=== PATIENT | female | born 1995 | race Caucasian/White ===

== ENCOUNTER 2023-11-01 11:07 | Emergency (ER) | payer OTHER, SELFPAY ==
--- OUTSIDE RECORDS SUMMARY | 2023-11-01 11:14 | XMS REPORT | Continuity of Care Document ---
:1995 Author Organization [facility] t Address [address] [place] [address] [address] [place] [address] Care Team Providers Name Role Phone G_Papjaime Attending Clinician Unavailable SHERRON Attending Clinician Unavailable TK LAUREN Attending Clinician Unavailable GÓMEZ HALE Attending Clinician Unavailable KAREL BROOKE Attending Clinician Unavailable LÁZARO SANTANA Attending Clinician Unavailable JUN VEGA Attending Clinician Unavailable KELLY MAYFIELD Attending Clinician Unavailable CLAUDE ZAMUDIO Attending Clinician Unavailable ALISSA MACK Attending Clinician Unavailable Ghislaine_Pappabhavna Admitting Clinician Unavailable SHERRON Admitting Clinician Unavailable TK LAUREN Admitting Clinician Unavailable KAREL BROOKE Admitting Clinician Unavailable Payers Payer Name Policy Type Policy Number Effective Date Expiration Date [facility] [id number] [facility] (MEDICAID REPLACEMENT - HMO) [facility] [id number] [place] [id number] 2017 00:00:00 [facility] [id number] 2016 [facility] 00:00:00 ([place] [id number] [facility] [place]) [place] [facility] - [id number] [facility] [place] [id number] [place] [id number] 2013 (PPO) 00:00:00 Problems Condition Condition Condition Status Onset Resolution Last Treating Co mments Source Name Details Category Date Date Treatment Clinician Date Primary Primary Problem Active [place] dysmenorrh Dysmenorrh -18 da ea ea 00:00: Medical 00 Group Blood Blood Problem Active [place] group O Group O da Rh(D) Rh(D) Medical negative Negative Group Allergies, Adverse Reactions, Alerts Allergy Allergy Status Severity Reaction(s) Onset Inactive Treating Comm ents Source Name Type Date Date Clinician Phenerga Allergy Active Moderate Respiratory [place] n to to severe distress da substanc Medical e Group Social History Smoking Status Start Date Stop Date Source Former Smoker [facility] Medications Ordered Filled Start Stop Current Ordering Indication Dosage Frequency Signature Comments Components Source Medication Medication Date Date Medication? Clinician (SIG) Name Name clindamycin clindamycin No clindamyci [facility] HCl 300 mg HCl 300 mg n HCl 300 da capsule capsule mg capsule Med ical TAKE 1 TAKE 1 TAKE 1 Group CAPSULE BY CAPSULE BY CAPSULE BY MOUTH THREE MOUTH THREE MOUTH TIMES DAILY TIMES DAILY THREE FOR 7 DAYS FOR 7 DAYS TIMES DAILY FOR 7 DAYS doxycycline doxycycline No doxycyclin [place] monohydrate monohydrate e d a 100 mg 100 mg monohydrat Medic al capsule capsule e 100 mg Group TAKE 1 TAKE 1 capsule CAPSULE BY CAPSULE BY TAKE 1 MOUTH TWICE MOUTH TWICE CAPSULE BY DAILY FOR 7 DAILY FOR 7 MOUTH DAYS DAYS TWICE DAILY FOR 7 DAYS Estarylla Estarylla No Estarylla [facility] 0.25 mg-35 0.25 mg-35 0.25 mg-35 da mcg tablet mcg tablet mcg tablet Medical TAKE 1 TAKE 1 TAKE 1 Group TABLET BY TABLET BY TABLET BY MOUTH EVERY MOUTH EVERY MOUTH DAY DAY EVERY DAY metronidazo metronidazo No metronidaz [place] le 500 mg le 500 mg ole 500 mg da tablet TAKE tablet TAKE tablet Medical 2 TABLETS 2 TABLETS TAKE 2 Christopher up BY MOUTH BY MOUTH TABLETS BY EVERY 2 EVERY 2 MOUTH WEEKS WEEKS EVERY 2 WEEKS Flagyl 500 Flagyl 500 No 2 Q2W Flagyl 500 [facility] mg tablet mg tablet mg tablet da Take 2 Take 2 Take 2 Medical tablets tablets tablets Group every 2 every 2 every 2 weeks by weeks by weeks by oral route. oral route. oral route. Sprintec Sprintec No 1 Q1D Sprintec [facility] (28) 0.25 (28) 0.25 (28) 0.25 da mg-35 mcg mg-35 mcg mg-35 mcg Medical tablet Take tablet Take tablet Group 1 tablet 1 tablet Take 1 every day every day tablet by oral by oral every day route. route. by oral route. Vital Signs Vital Name Observation Time Observation Value Comments Source BP Diastolic 2022-09-05 00:00:00 67 mm[Hg] [facility] Height 2022-09-05 00:00:00 65 [in_i] [facility] BMI (Body Mass 2022-09-05 00:00:00 18.6 kg/m2 [facility] Medical Index) Group BP Systolic 2022-09-05 00:00:00 113 mm[Hg] [facility] Body Weight 2022-09-05 00:00:00 111.8 [lb_av] [facility] BP Diastolic 2022-08-19 00:00:00 72 mm[Hg] [facility] Height 2022-08-19 00:00:00 65 [in_i] [facility] BMI (Body Mass 2022-08-19 00:00:00 19 kg/m2 [facility] Medical Index) Group BP Systolic 2022-08-19 00:00:00 124 mm[Hg] [facility] Body Weight 2022-08-19 00:00:00 114.1 [lb_av] [facility] BP Diastolic 2022-04-11 00:00:00 76 mm[Hg] [facility] Height 2022-04-11 00:00:00 65 [in_i] [facility] BMI (Body Mass 2022-04-11 00:00:00 18.5 kg/m2 [facility] Medical Index) Group BP Systolic 2022-04-11 00:00:00 119 mm[Hg] [facility] Body Weight 2022-04-11 00:00:00 111.2 [lb_av] [facility] BP Diastolic 2022-03-11 00:00:00 76 mm[Hg] [facility] Height 2022-03-11 00:00:00 65 [in_i] [facility] BMI (Body Mass 2022-03-11 00:00:00 18.4 kg/m2 [facility] Medical Index) Group BP Systolic 2022-03-11 00:00:00 125 mm[Hg] [facility] Body Weight 2022-03-11 00:00:00 110.5 [lb_av] [facility] BP Diastolic 2021-06-11 00:00:00 75 mm[Hg] [facility] Height 2021-06-11 00:00:00 65 [in_i] [facility] BMI (Body Mass 2021-06-11 00:00:00 18 kg/m2 [facility] Medical Index) Group BP Systolic 2021-06-11 00:00:00 120 mm[Hg] [facility] Body Weight 2021-06-11 00:00:00 107.9 [lb_av] [facility] BP Diastolic 2019-08-19 00:00:00 62 mm[Hg] [facility] Height 2019-08-19 00:00:00 65 [in_i] [facility] BMI (Body Mass 2019-08-19 00:00:00 20.7 kg/m2 [facility] Medical Index) Group BP Systolic 2019-08-19 00:00:00 133 mm[Hg] [facility] Body Weight 2019-08-19 00:00:00 124.4 [lb_av] [facility] Height 2019-08-09 00:00:00 65 [in_i] [facility] BMI (Body Mass 2019-08-09 00:00:00 20.7 kg/m2 [facility] Medical Index) Group Body Weight 2019-08-09 00:00:00 124.4 [lb_av] [facility] BP Diastolic 2019-07-26 00:00:00 77 mm[Hg] [facility] Height 2019-07-26 00:00:00 65 [in_i] [facility] BMI (Body Mass 2019-07-26 00:00:00 20.5 kg/m2 [facility] Medical Index) Group BP Systolic 2019-07-26 00:00:00 130 mm[Hg] [facility] Body Weight 2019-07-26 00:00:00 123 [lb_av] [facility] BP Diastolic 2019-07-06 00:00:00 75 mm[Hg] [facility] Height 2019-07-06 00:00:00 65 [in_i] [facility] BMI (Body Mass 2019-07-06 00:00:00 20.8 kg/m2 [facility] BP Systolic 2019-07-06 00:00:00 131 mm[Hg] [facility] Body Weight 2019-07-06 00:00:00 125.1 [lb_av] [facility] BP Diastolic 2019-06-04 00:00:00 57 mm[Hg] [facility] Height 2019-06-04 00:00:00 65 [in_i] [facility] BMI (Body Mass 2019-06-04 00:00:00 22.2 kg/m2 [facility] Medical Index) Group BP Systolic 2019-06-04 00:00:00 117 mm[Hg] [facility] Body Weight 2019-06-04 00:00:00 133.6 [lb_av] [facility] BP Diastolic 2019-05-20 00:00:00 75 mm[Hg] [facility] Height 2019-05-20 00:00:00 65 [in_i] [facility] BMI (Body Mass 2019-05-20 00:00:00 21.6 kg/m2 [facility] BP Systolic 2019-05-20 00:00:00 113 mm[Hg] [facility] Body Weight 2019-05-20 00:00:00 129.9 [lb_av] [facility] BP Diastolic 2019-05-06 00:00:00 63 mm[Hg] [facility] Height 2019-05-06 00:00:00 65 [in_i] [facility] BMI (Body Mass 2019-05-06 00:00:00 21.7 kg/m2 [facility] BP Systolic 2019-05-06 00:00:00 129 mm[Hg] [facility] Body Weight 2019-05-06 00:00:00 130.5 [lb_av] [facility] BP Diastolic 2019-04-28 00:00:00 57 mm[Hg] [facility] Height 2019-04-28 00:00:00 65 [in_i] [facility] BMI (Body Mass 2019-04-28 00:00:00 21.2 kg/m2 [facility] Index) Group BP Systolic 2019-04-28 00:00:00 114 mm[Hg] [facility] Body Weight 2019-04-28 00:00:00 127.6 [lb_av] [facility] Procedures Procedure Date / Time Performed Performing Clinician [facility] Bilateral Tubal 2019-07-28 00:00:00 [facility] Ligation of Bilateral 2019-07-28 00:00:00 [facility] Fallopian Tubes Group US, obstetric, limited 2019-05-20 00:00:00 [facility] ULTRASOUND REPEAT 2019-04-28 00:00:00 [facility] Colonoscopy [facility] Plan of Care Planned Activity Planned Date Details Comments Source Diagnostic Test 2022-09-05 urinalysis, [facility] 00:00:00 dipstick [code = Group urinalysis, dipstick] Diagnostic Test 2022-09-05 [place], vaginal [facility] Pending 00:00:00 [code = wet [place], Group vaginal] Encounters Start End Encounter Admission Attending Care Care Encounter Source Date/Time Date/Time Type Type Clinicians Facility Department ID 2022-10-16 2022-10-16 Outpatient G_Pappas [facility] 2021 [facility] 00:00:00 00:00:00 [facility] 2022-10-14 2022-10-14 Outpatient G_Pappas [facility] 2021 [place] 00:00:00 00:00:00 [facility] 2022-10-10 2022-10-10 Outpatient G_Pappas [facility] 2021 [place] 00:00:00 00:00:00 [facility] 2022-09-25 2022-09-25 Outpatient G_Pappas [facility] 2021 [place] 00:00:00 00:00:00 1026 [facility] 2022-09-24 2022-09-24 Outpatient G_Pappas [facility] 2021 [place] 00:00:00 00:00:00 1025 [facility] 2022-09-05 2022-09-05 Outpatient G_Pappas [facility] MMG 2021 [place] 00:00:00 00:00:00 [facility]6 [facility] 2022-09-05 2022-09-05 Tk SANTOG [place] - [id number] M [facility] 00:00:00 00:00:00 Discovery kady Lauren MD: [address] [place] [phone] , Ph. [phone] 2022-08-19 2022-08-19 Outpatient G_Pappas MMG MM 2021 [place] 00:00:00 00:00:00 0919 [facility] 2022-08-19 2022-08-19 Tk SANTO [place] - [id number] M [facility] 00:00:00 00:00:00 Discovery kady Lauren MD: [address] [place] [phone] , Ph. [phone] 2022-08-13 2022-08-13 Outpatient G_Pappas MMG MM 2021 [place] 00:00:00 00:00:00 0913 [facility] 2022-04-11 2022-04-11 Outpatient G_Pappas [facility] MMG 2021 [place] 11:12:00 11:12:00 0512 [facility] 2022-04-11 2022-04-11 Outpatient G_Pappas MM[facility] MMG 2021 [place] 11:12:00 11:12:00 0516 [facility] 2022-04-11 2022-04-11 Tk SANTO [place] - [id number] M [facility] 00:00:00 00:00:00 Discovery kady Lauren MD: [address] [place] [phone] , Ph. [phone] 2022-03-25 2022-03-25 Outpatient LISTER_MAXINE GREENE [facility] [id number] -[id number] [place] 03:06:00 03:06:00 SSA 0425 [facility] Program 2022-03-11 2022-03-11 Outpatient EL LEONIDAS, [facility] [id number] [place] 11:12:00 11:12:00 TK -[id number] [facility] 2022-03-11 2022-03-11 Outpatient G_Pappas MMG MM 2021 [place] 11:10:00 11:10:00 0411 [facility] 2022-03-11 2022-03-11 Outpatient G_Pappas MMG MMG 2021 [place] 11:10:00 11:10:00 0412 [facility] 2022-03-11 2022-03-11 Outpatient G_Pappas MMG MM 2021 [place] 11:10:00 11:10:00 0426 [facility] 2022-03-11 2022-03-11 Outpatient G_Pappas MMG MMG 2021 [place] 11:10:00 11:10:00 0509 [facility] 2022-03-11 2022-03-11 Tk [facility] [place] - [id number] [facility] 00:00:00 00:00:00 Discovery kady Lauren MD: [address] [place] [phone] , Ph. [phone] 2022-03-08 2022-03-08 Outpatient G_Pappas MMG MM 2021 [place] 10:08:00 10:08:00 0408 [facility] 2021-07-23 2021-07-23 Emergency ER GÓMEZ HALE [facility] [id number] [place] 08:36:00 10:03:00 -[id number] [facility] 2021-06-12 2021-06-12 Outpatient G_Pappas MMG MMG 2020 [place] 01:36:00 01:36:00 0713 [facility] 2021-06-11 2021-06-11 Outpatient G_Pappas MMG MM 2020 [place] 10:26:00 10:26:00 0712 da [facility] 2021-06-11 2021-06-11 Tk [place] - [id number] M [facility] 00:00:00 00:00:00 Discovery kady Lauren MD: [address] [place] [phone] , Ph. [phone] 2021-06-05 2021-06-05 [facility] [id number] [place] 11:31:00 11:31:00 0706 [facility] 2021-06-05 2021-06-05 Outpatient G_Pappas MM MM [id number] [place] 11:31:00 11:31:00 0709 [facility] 2020-10-18 2020-10-18 Outpatient G_Pappas MM MM 2019 [place] 02:42:00 02:42:00 1118 [facility] 2019-08-19 2019-08-19 Tk [place] - [id number] M [facility] 00:00:00 00:00:00 Discovery kady Lauren MD: [address] [place] [phone] , Ph. [phone] 2019-08-09 2019-08-09 Tk [place] - [id number] M [facility] 00:00:00 00:00:00 Discovery kady Lauren MD: [address] [place] [phone] , Ph. [phone] 2019-07-28 2019-07-28 Outpatient [facility] [id number] [place] 07:40:00 07:40:00 TK [id number] kady [facility] 2019-07-26 2019-07-26 Tk [place] - [id number] M [facility] 00:00:00 00:00:00 Discovery kady Lauren MD: [address] [place] [phone] , Ph. [phone] 2019-07-06 2019-07-06 Tk [place] - [id number] M [facility] 00:00:00 00:00:00 Discovery kady Lauren MD: [address] [place] [phone] , Ph. [phone] 2019-06-15 2019-06-16 Inpatient ER LEONIDAS, [facility] [id number] [place] 10:35:00 09:00:00 TK [id number] kady [facility] 2019-06-04 2019-06-04 Karel [place] - [id number] M [facility] 00:00:00 00:00:00 [facility] MD: [address] [place] [phone] , Ph. [phone] 2019-05-20 2019-05-20 Tk [place] - [id number] M [facility] 00:00:00 00:00:00 Discovery kady Lauren MD: [address] [place] [phone] , Ph. [phone] 2019-05-11 2019-05-11 Emergency ER EDWARDO, [facility] [id number] [place] 15:25:00 17:48:00 KAREL [id number] [facility] 2019-05-06 2019-05-06 Outpatient EL LEONIDAS, [facility] [id number] [place] 09:51:00 09:51:00 TK [id number] kady [facility] 2019-05-06 2019-05-06 Tk [place] - [id number] M [facility] 00:00:00 00:00:00 Discovery kady Lauren MD: [address] [place] [phone] , Ph. [phone] 2019-04-28 2019-04-28 Tk [place] - [id number] M [facility] 00:00:00 00:00:00 Discovery kady Lauren MD: [address] [facility] [place], [place] - [address], [place] [address] , Ph. [phone] 2018-11-18 2018-11-18 Emergency ER GÓMEZ HALE [facility] [id number] [place] 11:33:00 14:10:00 -[id number] [facility] 2018-02-23 2018-02-23 Emergency ER UGORJI, [facility] [id number] [place] 09:05:00 10:55:00 CLEMENT -[id number] [facility] 2015-02-02 2015-02-02 Emergency ER VEGA, [facility] [id number] [place] 14:43:00 18:00:00 WAS -[id number] [facility] 2014-10-12 2014-10-13 Emergency ER VEGA, [facility] [id number] [place] 23:26:00 00:55:00 WASIM -[id number] [facility] 2014-06-23 2014-06-24 Emergency ER KELLY MAYFIELD [facility] [id number] [place] 23:08:00 01:35:00 -[id number] [facility] 2013-11-15 2013-11-15 Emergency ER ROBB, [facility] [id number] [place] 15:47:00 18:05:00 [facility] -[id number] [facility] 2013-09-20 2013-09-20 Emergency ER UGORJI, [facility] [id number] [place] 10:59:00 13:05:00 CLEMENT -[id number] [facility] 2013-07-08 2013-07-08 Emergency ER UGORJI, [facility] [id number] [place] 13:46:00 15:05:00 CLEMENT -[id number] [facility] 2012-09-15 2012-09-17 Inpatient EL EDWARDO, [facility] [id number] [place] 13:56:00 11:00:00 KAREL -[id number] [facility] 2012-08-26 2012-08-26 Emergency ER EDWARDO, [facility] [id number] [place] 17:11:00 20:30:00 [facility] -[id number] [facility] 2012-08-03 2012-08-03 Emergency EL EDWARDO, [facility] [id number] [place] 16:03:00 17:20:00 KAREL -[id number] [facility] 2012 2012 Emergency ER MACK, [facility] [id number] [place] 18:54:00 22:25:00 ALISSA -[id number] [facility] 2012-03-22 2012-03-22 Emergency ER VEGA, [facility] [id number] [place] 15:34:00 20:05:00 WAS -[id number] [facility] 2011-12-04 2011-12-04 Emergency ER [facility], [facility] [id number] [place] 18:18:00 20:25:00 [facility] -[id number] Former[facility] 2011-05-02 2011-05-03 Emergency ER [facility], [facility] [id number] [place] 23:14:00 00:41:00 WAS -[id number] [facility] 2010-11-20 2010-11-20 Emergency ER STEPHAN, [facility] [id number] [place] 13:21:00 17:55:00 [facility] -[id number] [facility] 2010-04-24 2010-04-24 Emergency ER [facility] [id number] [place] 22:32:00 23:50:00 WAS -[id number] [facility] Results Test Description Test Time Test Comments Results Result Comments Source Microscopic observation [Identifier] in Vaginal fluid by Wet 2022-09-05 17:51:43 preparation Test Item Value Reference Range Interpretation Comme nts Clue Cells (test code = Clue Cells) negative WBCs (test code = WBCs) negative Trichomonads (test code = Trichomonads) negative Epithelial cells (test code = Epithelial cells) normal RBCs (test code = RBCs) positive [facility] Group[facility] macro (dipstick) panel - [id number] 15:39:54 Test Item Value Reference Range Interpretation Comments Leukocytes (test code = Negative Leukocytes) Nitrite (test code = negative Nitrite) Urobilinogen (test code = 1 Urobilinogen) Protein (test code = Negative Protein) pH (test code = pH) 5.5 Blood (test code = Blood) Non-Hemolyzed: Trace Specific Webb (test 1.030 code = Specific Webb) Ketone (test code = Negative Ketone) Bilirubin (test code = Negative Bilirubin) Glucose (test code = Negative Glucose) Appearance (test code = Clear Appearance) Color (test code = Color) Yellow [facility] GroupCT + NG + TV, DNA, [id number] 00:00:00 Test Item Value Reference Range Interpretation Comments larisa - swab (test code = larisa normal - swab) gardnerella (test code = abnormal A gardnerella) CT/NG (test code = CT/NG) normal trichomonas vaginalis addon - swab normal (test code = trichomonas vaginalis addon - swab) [facility] GroupMicroscopic observation [Identifier] in Vaginal fluid by Wet [id number] 11:32:01 Test Item Value Reference Range Interpretation Comments Clue Cells (test code = Clue Cells) positive WBCs (test code = WBCs) negative Trichomonads (test code = negative Trichomonads) Epithelial cells (test code = abnormal Epithelial cells) RBCs (test code = RBCs) negative [facility] GroupMicroscopic observation [Identifier] in Vaginal fluid by Wet [id number] 11:32:01 Test Item Value Reference Range Interpretation Comments Clue Cells (test code = Clue Cells) positive WBCs (test code = WBCs) negative Trichomonads (test code = negative Trichomonads) Epithelial cells (test code = abnormal Epithelial cells) RBCs (test code = RBCs) negative [facility] - [id number] 11:06:08 Test Item Value Reference Range Interpretation Comments Leukocytes (test code = Leukocytes) Negative Nitrite (test code = Nitrite) negative Urobilinogen (test code = 1 Urobilinogen) Protein (test code = Protein) Negative pH (test code = pH) 7.5 Blood (test code = Blood) Negative Specific Webb (test code = 1.015 Specific Webb) Ketone (test code = Ketone) Negative Bilirubin (test code = Bilirubin) Negative Glucose (test code = Glucose) Negative Appearance (test code = Appearance) Clear Color (test code = Color) Yellow [facility] - [id number] 11:06:08 Test Item Value Reference Range Interpretation Comments Leukocytes (test code = Leukocytes) Negative Nitrite (test code = Nitrite) negative Urobilinogen (test code = 1 Urobilinogen) Protein (test code = Protein) Negative pH (test code = pH) 7.5 Blood (test code = Blood) Negative Specific Webb (test code = 1.015 Specific Webb) Ketone (test code = Ketone) Negative Bilirubin (test code = Bilirubin) Negative Glucose (test code = Glucose) Negative Appearance (test code = Appearance) Clear Color (test code = Color) Yellow [facility] GroupMicroscopic observation [Identifier] in Vaginal fluid by Wet [id number] 10:50:00 Test Item Value Reference Range Interpretation Comments Clue Cells (test code = Clue Cells) negative WBCs (test code = WBCs) negative Trichomonads (test code = negative Trichomonads) Epithelial cells (test code = normal Epithelial cells) RBCs (test code = RBCs) negative [facility] panel - [id number] 10:31:06 Test Item Value Reference Range Interpretation Comments Leukocytes (test code = Leukocytes) Negative Nitrite (test code = Nitrite) negative Urobilinogen (test code = 4 Urobilinogen) Protein (test code = Protein) Negative pH (test code = pH) 7.0 Blood (test code = Blood) Negative Specific Webb (test code = 1.015 Specific Webb) Ketone (test code = Ketone) Negative Bilirubin (test code = Bilirubin) Negative Glucose (test code = Glucose) Negative Appearance (test code = Appearance) Clear Color (test code = Color) Yellow [facility] GroupMicroscopic observation [Identifier] in Vaginal fluid by Wet [id number] 11:41:06 Test Item Value Reference Range Interpretation Comments Clue Cells (test code = Clue Cells) positive WBCs (test code = WBCs) positive Trichomonads (test code = negative Trichomonads) Epithelial cells (test code = abnormal Epithelial cells) RBCs (test code = RBCs) negative [facility] panel - [id number] 10:25:52 Test Item Value Reference Range Interpretation Comments Leukocytes (test code = Leukocytes) Negative Nitrite (test code = Nitrite) negative Urobilinogen (test code = .2 Urobilinogen) Protein (test code = Protein) Negative pH (test code = pH) 5.5 Blood (test code = Blood) Negative Specific Webb (test code = 1.005 Specific Webb) Ketone (test code = Ketone) Negative Bilirubin (test code = Bilirubin) Negative Glucose (test code = Glucose) Negative Appearance (test code = Appearance) Clear Color (test code = Color) Yellow [facility] panel - [id number] 09:49:00 Test Item Value Reference Range Interpretation Comments Leukocytes (test code = Leukocytes) Negative Nitrite (test code = Nitrite) negative Urobilinogen (test code = .2 Urobilinogen) Protein (test code = Protein) Negative pH (test code = pH) 6.0 Blood (test code = Blood) Negative Specific Webb (test code = 1.030 Specific Webb) Ketone (test code = Ketone) Negative Bilirubin (test code = Bilirubin) Small Glucose (test code = Glucose) Negative Appearance (test code = Appearance) Clear Color (test code = Color) Yellow [facility]dipstick[facility] panel - [id number] 10:50:50 Test Item Value Reference Range Interpretation Comments Leukocytes (test code = Leukocytes) Negative Nitrite (test code = Nitrite) negative Urobilinogen (test code = .2 Urobilinogen) Protein (test code = Protein) Negative pH (test code = pH) 5.5 Blood (test code = Blood) Negative Specific Webb (test code = 1.020 Specific Webb) Ketone (test code = Ketone) Negative Bilirubin (test code = Bilirubin) Negative Glucose (test code = Glucose) Negative Appearance (test code = Appearance) Clear Color (test code = Color) Yellow [facility] panel - [id number] 10:50:50 Test Item Value Reference Range Interpretation Comments Leukocytes (test code = Leukocytes) Negative Nitrite (test code = Nitrite) negative Urobilinogen (test code = .2 Urobilinogen) Protein (test code = Protein) Negative pH (test code = pH) 5.5 Blood (test code = Blood) Negative Specific Webb (test code = 1.020 Specific Webb) Ketone (test code = Ketone) Negative Bilirubin (test code = Bilirubin) Negative Glucose (test code = Glucose) Negative Appearance (test code = Appearance) Clear Color (test code = Color) Yellow [facility] W Auto Differential panel - [id number] 09:51:00 Test Item Value Reference Range Interpretation Comments white blood count (test code = 6.8 K/uL 4.0-11.5 white blood count) red blood count (test code = red 4.66 M/uL 3.80-5.20 blood count) hemoglobin (test code = 12.6 g/dL 10.5-15.7 hemoglobin) hematocrit (test code = 39.4 % 34.0-50.0 hematocrit) Erythrocyte mean corpuscular 84.5 fL 86-100 L volume [Entitic volume] (test code = 70061-9) mean corpuscular hemoglobin (test 27.0 pg 26.2-33.4 code = mean corpuscular hemoglobin) mean corpuscular HGB conc (test 32.0 g/dL 30-34 code = mean corpuscular HGB conc) red cell distribution width (test 12.8 % 12.0-15.5 code = red cell distribution width) platelet count (test code = 235 K/uL 165-450 platelet count) mean platelet volume (test code = 10.2 fL 9.4-12.6 mean platelet volume) Neutrophils.segmented/100 60.0 % 44.4-80.1 leukocytes in Blood (test code = 79271-5) Ig% (test code = Ig%) 0.3 % 0.0-0.4 lymphocyte% (test code = 32.8 % 10.0-50.0 lymphocyte%) mono % (test code = mono %) 5.3 % 3.6-12.0 eos % (test code = eos %) 1.3 % 0.0-5.4 Basophils/100 leukocytes in 0.3 % 0.1-1.2 Unspecified specimen (test code = 65398-7) absolute neutrophil count (test 4.05 K/uL 1.56-6.13 code = absolute neutrophil count) Ig# (test code = Ig#) 0.0 K/uL 0.0-0.03 Lymphocytes [#/volume] in 2.2 K/uL 1.18-3.74 Unspecified specimen by Automated count (test code = 99573-5) mono # (test code = mono #) 0.36 K/uL 0.24-0.86 eos # (test code = eos #) 0.09 K/uL 0.04-0.36 basophil # (test code = basophil 0.02 K/uL 0.01-0.08 #) NRBC% (test code = NRBC%) 0 /100 WBC 0-0.2 NRBC# (test code = NRBC#) 0 K/uL [facility] W Auto Differential panel - [id number] 09:51:00 Test Item Value Reference Range Interpretation Comments white blood count (test code = 6.8 K/uL 4.0-11.5 white blood count) red blood count (test code = red 4.66 M/uL 3.80-5.20 blood count) hemoglobin (test code = 12.6 g/dL 10.5-15.7 hemoglobin) hematocrit (test code = 39.4 % 34.0-50.0 hematocrit) Erythrocyte mean corpuscular 84.5 fL 86-100 L volume [Entitic volume] (test code = 50234-8) mean corpuscular hemoglobin (test 27.0 pg 26.2-33.4 code = mean corpuscular hemoglobin) mean corpuscular HGB conc (test 32.0 g/dL 30-34 code = mean corpuscular HGB conc) red cell distribution width (test 12.8 % 12.0-15.5 code = red cell distribution width) platelet count (test code = 235 K/uL 165-450 platelet count) mean platelet volume (test code = 10.2 fL 9.4-12.6 mean platelet volume) Neutrophils.segmented/100 60.0 % 44.4-80.1 leukocytes in Blood (test code = 26135-9) Ig% (test code = Ig%) 0.3 % 0.0-0.4 lymphocyte% (test code = 32.8 % 10.0-50.0 lymphocyte%) mono % (test code = mono %) 5.3 % 3.6-12.0 eos % (test code = eos %) 1.3 % 0.0-5.4 Basophils/100 leukocytes in 0.3 % 0.1-1.2 Unspecified specimen (test code = 96535-7) absolute neutrophil count (test 4.05 K/uL 1.56-6.13 code = absolute neutrophil count) Ig# (test code = Ig#) 0.0 K/uL 0.0-0.03 Lymphocytes [#/volume] in 2.2 K/uL 1.18-3.74 Unspecified specimen by Automated count (test code = 76247-8) mono # (test code = mono #) 0.36 K/uL 0.24-0.86 eos # (test code = eos #) 0.09 K/uL 0.04-0.36 basophil # (test code = basophil 0.02 K/uL 0.01-0.08 #) NRBC% (test code = NRBC%) 0 /100 WBC 0-0.2 NRBC# (test code = NRBC#) 0 K/uL [facility]dipstick[facility] panel - [id number] 10:45:13 Test Item Value Reference Range Interpretation Comments Leukocytes (test code = Leukocytes) Negative Nitrite (test code = Nitrite) negative Urobilinogen (test code = .2 Urobilinogen) Protein (test code = Protein) Negative pH (test code = pH) 5.5 Blood (test code = Blood) Moderate Specific Webb (test code = 1.025 Specific Webb) Ketone (test code = Ketone) Negative Bilirubin (test code = Bilirubin) Negative Glucose (test code = Glucose) Negative Appearance (test code = Appearance) Clear Color (test code = Color) Yellow [facility] (dipstick) panel - [id number] 10:45:13 Test Item Value Reference Range Interpretation Comments Leukocytes (test code = Leukocytes) Negative Nitrite (test code = Nitrite) negative Urobilinogen (test code = .2 Urobilinogen) Protein (test code = Protein) Negative pH (test code = pH) 5.5 Blood (test code = Blood) Moderate Specific Webb (test code = 1.025 Specific Webb) Ketone (test code = Ketone) Negative Bilirubin (test code = Bilirubin) Negative Glucose (test code = Glucose) Negative Appearance (test code = Appearance) Clear Color (test code = Color) Yellow [facility] (dipstick) panel - [id number] 10:45:13 Test Item Value Reference Range Interpretation Comments Leukocytes (test code = Leukocytes) Negative Nitrite (test code = Nitrite) negative Urobilinogen (test code = .2 Urobilinogen) Protein (test code = Protein) Negative pH (test code = pH) 5.5 Blood (test code = Blood) Moderate Specific Webb (test code = 1.025 Specific Webb) Ketone (test code = Ketone) Negative Bilirubin (test code = Bilirubin) Negative Glucose (test code = Glucose) Negative Appearance (test code = Appearance) Clear Color (test code = Color) [facility] - [id number] 00:00:00 Test Item Value Reference Range Interpretation Comments white blood count (test code = 12.0 K/uL 4.0-11.5 H white blood count) red blood count (test code = red 3.77 M/uL 3.80-5.20 L blood count) hemoglobin (test code = 9.9 g/dL 10.5-15.7 L hemoglobin) hematocrit (test code = 32.7 % 34.0-50.0 L hematocrit) Erythrocyte mean corpuscular 86.7 fL 86-100 volume [Entitic volume] (test code = 72446-4) Erythrocyte mean corpuscular 26.3 pg 26.2-33.4 hemoglobin [Entitic mass] (test code = 38380-6) mean corpuscular HGB conc (test 30.3 g/dL 30-34 code = mean corpuscular HGB conc) red cell distribution width (test 13.2 % 12.0-15.5 code = red cell distribution width) platelet count (test code = 219 K/uL 165-450 platelet count) mean platelet volume (test code = 10.0 fL 9.4-12.6 mean platelet volume) Neutrophils.segmented/100 72.2 % 44.4-80.1 leukocytes in Blood (test code = 79017-7) Ig% (test code = Ig%) 0.4 % 0.0-0.4 lymphocyte% (test code = 20.8 % 10.0-50.0 lymphocyte%) Monocytes/100 leukocytes in Blood 5.5 % 3.6-12.0 by Automated count (test code = 5905-5) Eosinophils/100 leukocytes in 0.8 % 0.0-5.4 Blood by Automated count (test code = 713-8) Basophils/100 leukocytes in 0.3 % 0.1-1.2 Unspecified specimen (test code = 41510-2) absolute neutrophil count (test 8.64 K/uL 1.56-6.13 H code = absolute neutrophil count) Ig# (test code = Ig#) 0.1 K/uL 0.0-0.03 H Lymphocytes [#/volume] in 2.5 K/uL 1.18-3.74 Unspecified specimen by Automated count (test code = 61688-9) mono # (test code = mono #) 0.66 K/uL 0.24-0.86 eos # (test code = eos #) 0.09 K/uL 0.04-0.36 basophil # (test code = basophil 0.03 K/uL 0.01-0.08 #) NRBC% (test code = NRBC%) 0 /100 WBC 0-0.2 NRBC# (test code = NRBC#) 0 K/uL [facility] Group[facility] complete [facility] - [id number] 00:00:00 Test Item Value Reference Range Interpretation Comments Color of Urine by Auto (test colorless code = 07913-4) Appearance of Urine (test code clear clear = 5767-9) Glucose [Presence] in Urine by negative negative Automated test strip (test code = 43232-9) Bilirubin.total [Mass/volume] negative negative in Urine (test code = 1977-6) Ketones [Mass/volume] in Urine negative negative by Automated test strip (test code = 64114-0) Specific gravity of Urine by 1.007 1.003-1.030 Automated test strip (test code = 14284-6) blood urine (test code = blood negative negative urine) pH of Urine (test code = 6.500 5-9 2756-5) protein urine (UA) (test code = negative negative protein urine (UA)) Urobilinogen [Presence] in normal 0.2-1.0 Urine (test code = 01845-1) Nitrite [Presence] in Urine by negative negative Test strip (test code = 5802-4) Leukocyte esterase [Presence] negative negative in Urine by Automated test strip (test code = 51619-3) Erythrocytes [#/volume] in <1 0-5 Urine by Automated count (test code = 798-9) Leukocytes [#/area] in Urine <1 0-5 sediment by Automated count (test code = 63994-3) Epithelial cells [Presence] in =1-5 0-5 Urine sediment by Light microscopy (test code = 55287-4) Bacteria identified in Urine by none detected none detect Culture (test code = 630-4) Casts [#/area] in Urine none detected none detect sediment by Automated count (test code = 42692-8) urine culture added? (test code no = urine culture added?) [facility] W Auto Differential panel - [id number] 00:00:00 Test Item Value Reference Range Interpretation Comments white blood count (test code = 11.8 K/uL 4.0-11.5 H white blood count) red blood count (test code = red 4.03 M/uL 3.80-5.20 blood count) hemoglobin (test code = 10.6 g/dL 10.5-15.7 hemoglobin) hematocrit (test code = 34.3 % 34.0-50.0 hematocrit) Erythrocyte mean corpuscular 85.1 fL 86-100 L volume [Entitic volume] (test code = 98354-9) Erythrocyte mean corpuscular 26.3 pg 26.2-33.4 hemoglobin [Entitic mass] (test code = 01118-3) mean corpuscular HGB conc (test 30.9 g/dL 30-34 code = mean corpuscular HGB conc) red cell distribution width (test 13.2 % 12.0-15.5 code = red cell distribution width) platelet count (test code = 264 K/uL 165-450 platelet count) mean platelet volume (test code = 10.0 fL 9.4-12.6 mean platelet volume) Neutrophils.segmented/100 78.3 % 44.4-80.1 leukocytes in Blood (test code = 48926-8) Ig% (test code = Ig%) 0.7 % 0.0-0.4 H lymphocyte% (test code = 14.8 % 10.0-50.0 lymphocyte%) Monocytes/100 leukocytes in Blood 5.8 % 3.6-12.0 by Automated count (test code = 5905-5) Eosinophils/100 leukocytes in 0.2 % 0.0-5.4 Blood by Automated count (test code = 713-8) Basophils/100 leukocytes in 0.2 % 0.1-1.2 Unspecified specimen (test code = 08178-5) absolute neutrophil count (test 9.24 K/uL 1.56-6.13 H code = absolute neutrophil count) Ig# (test code = Ig#) 0.1 K/uL 0.0-0.03 H Lymphocytes [#/volume] in 1.8 K/uL 1.18-3.74 Unspecified specimen by Automated count (test code = 31160-9) mono # (test code = mono #) 0.68 K/uL 0.24-0.86 eos # (test code = eos #) 0.02 K/uL 0.04-0.36 L basophil # (test code = basophil 0.02 K/uL 0.01-0.08 #) NRBC% (test code = NRBC%) 0 /100 WBC 0-0.2 NRBC# (test code = NRBC#) 0 K/uL [facility]Rubella virus IgG Ab [Titer] in [id number] 00:00:00 Test Item Value Reference Range Interpretation Comments Rubella virus IgG Ab 44.10 [IU]/mL [Units/volume] in Serum by Immunoassay (test code = 5334-8) [facility]Hepatitis B virus surface Ag [Presence] in Serum 2019-06-15 00:00:00 Test Item Value Reference Range Interpretation Comments .hepatitis B surface antigen (test negative negative code = .hepatitis B surface antigen) [facility]Reagin Ab [Presence] in Serum by [id number] 00:00:00 Test Item Value Reference Range Interpretation Comments Reagin Ab [Presence] in Serum by nonreactive nonreactive RPR (test code = 17315-3) [facility]Ur[facility] (dipstick) panel - [id number] 09:56:57 Test Item Value Reference Range Interpretation Comments Leukocytes (test code = Leukocytes) Trace Nitrite (test code = Nitrite) negative Urobilinogen (test code = 1 Urobilinogen) Protein (test code = Protein) 30 pH (test code = pH) 7.5 Blood (test code = Blood) Negative Specific Webb (test code = 1.020 Specific Webb) Ketone (test code = Ketone) Negative Bilirubin (test code = Bilirubin) Negative Glucose (test code = Glucose) Negative Appearance (test code = Appearance) Clear Color (test code = Color) Yellow [facility]Ur[facility] macro (dipstick) panel - [id number] 09:56:57 Test Item Value Reference Range Interpretation Comments Leukocytes (test code = Leukocytes) Trace Nitrite (test code = Nitrite) negative Urobilinogen (test code = 1 Urobilinogen) Protein (test code = Protein) 30 pH (test code = pH) 7.5 Blood (test code = Blood) Negative Specific Webb (test code = 1.020 Specific Webb) Ketone (test code = Ketone) Negative Bilirubin (test code = Bilirubin) Negative Glucose (test code = Glucose) Negative Appearance (test code = Appearance) Clear Color (test code = Color) Yellow [facility]Ur[facility] complete panel - [id number] 00:00:00 Test Item Value Reference Range Interpretation Comments Color of Urine by Auto (test light yellow code = 23175-4) Appearance of Urine (test code = SL cloudy clear A 5767-9) Glucose [Presence] in Urine by negative negative Automated test strip (test code = 80516-1) Bilirubin.total [Mass/volume] in negative negative Urine (test code = 1978-6) Ketones [Mass/volume] in Urine =1 negative H by Automated test strip (test code = 92725-8) Specific gravity of Urine by 1.011 1.003-1.030 Automated test strip (test code = 23585-5) blood urine (test code = blood negative negative urine) pH of Urine (test code = 2756-5) 7.000 5-9 protein urine (UA) (test code = negative negative protein urine (UA)) Urobilinogen [Presence] in Urine normal 0.2-1.0 (test code = 84079-6) Nitrite [Presence] in Urine by negative negative Test strip (test code = 5802-4) Leukocyte esterase [Presence] in =2 negative H Urine by Automated test strip (test code = 68216-0) Erythrocytes [#/volume] in Urine <1 0-5 by Automated count (test code = 798-9) Leukocytes [#/area] in Urine =20-29 0-5 H sediment by Automated count (test code = 72098-2) Epithelial cells [Presence] in =1-5 0-5 Urine sediment by Light microscopy (test code = 36113-7) Bacteria identified in Urine by moderate (2 none detect H Culture (test code = 630-4) Casts [#/area] in Urine sediment =11-14 none detect H by Automated count (test code = 52177-6) urine culture added? (test code yes = urine culture added?) [facility] HospitalMicroscopic observation [Identifier] in Unspecified specimen by Wet [id number] 00:00:00[facility] Differential [facility] - [id number] 00:00:00 Test Item Value Reference Range Interpretation Comments white blood count (test code = 11.1 K/uL 4.0-11.5 white blood count) red blood count (test code = red 3.35 M/uL 3.80-5.20 L blood count) Hemoglobin [Mass/volume] in Blood 9.2 g/dL 10.5-15.7 L (test code = 718-7) hematocrit (test code = hematocrit) 29.7 % 34.0-50.0 L Erythrocyte mean corpuscular volume 88.6 fL 78-98 [Entitic volume] (test code = 24138-2) Erythrocyte mean corpuscular 27.5 pg 26.2-33.4 hemoglobin [Entitic mass] (test code = 53639-4) mean corpuscular HGB conc (test 31.1 g/dL 31.5-36.2 L code = mean corpuscular HGB conc) red cell distribution width (test 12.5 % 11.5-15.5 code = red cell distribution width) Platelets [#/volume] in Blood (test 209 K/uL 137-338 code = 67967-2) Platelet mean volume [Entitic 7.3 fL 8.4-11.8 L volume] in Blood (test code = 79170-2) Neutrophils.band form/100 72.2 % 44.4-80.1 leukocytes in Blood (test code = 65242-8) Lymphocytes/100 leukocytes in Body 20.8 % 10.0-50.0 fluid (test code = 21427-6) Monocytes/100 leukocytes in Blood 6.2 % 3.6-12.0 by Automated count (test code = 5905-5) Eosinophils/100 leukocytes in Blood 0.3 % 0.0-5.4 by Automated count (test code = 713-8) Basophils/100 leukocytes in 0.4 % 0.0-0.79 Unspecified specimen (test code = 49530-2) [facility]differential panel, [id number] 00:00:00 NeutrophilsBandLymphocyteAtypical LymphMonocyteEosinophilBasophilMetamyelocyteMyelocytePlatelet EstimatePlatelet MorphologyPoikilocytosisAnisocytosisMacrocytosisToxic GranulationHypersegmented PolysSmudge CellsCovington [facility] HospitalChlamydia trachomatis+Neisseria gonorrhoeae DNA [Presence] in Cervix by Probe and target amplification method 2019-05-11 00:00:00ResultsCovington County HospitalBacteria identified in Urine by [id number] 00:00:00Bacteria Ur CultCovington County HospitalReagin Ab [Presence] in Serum by [id number] 00:00:00 Test Item Value Reference Range Interpretation Comments Reagin Ab [Presence] in Serum by nonreactive nonreactive RPR (test code = 59434-8) [facility] HospitalHepatitis B virus surface Ag [Presence] in Serum 2019-05-11 00:00:00 Test Item Value Reference Range Interpretation Comments .hepatitis B surface antigen (test negative negative code = .hepatitis B surface antigen) [facility] HospitalComprehensive [facility] 2000 panel - Serum or Plasma 2019-05-11 00:00:00 Test Item Value Reference Range Interpretation Comments Glucose [Mass/volume] in Serum or 72 mg/dL 74-106 L Plasma (test code = 2345-7) Urea nitrogen [Mass/volume] in 6 mg/dL 6-20 Serum or Plasma (test code = 3094-0) Osmolality of Serum or Plasma 270 280-300 L (test code = 2692-2) creatinine (test code = 0.3 mg/dL 0.50-0.90 L creatinine) glomerular filtration rate (test >60.00 code = glomerular filtration rate) Urea nitrogen/Creatinine [Mass 20.0 12-20 Ratio] in Serum or Plasma (test code = 3097-3) sodium level (test code = sodium 137 mmol/L 135-145 level) potassium level (test code = 2.9 mmol/L 3.5-5.2 L potassium level) chloride level (test code = 102 mmol/L 98-108 chloride level) CO2 (test code = CO2) 18 mmol/L 21-32 L anion gap (test code = anion gap) 19.9 mEq/L 12-20 calcium level (test code = calcium 8.7 mg/dL 8.6-10.0 level) total protein (test code = total 6.3 g/dL 6.6-8.7 L protein) albumin (test code = albumin) 3.6 g/dL 3.5-5.2 globulin (test code = globulin) 2.7 gm/dL A/G ratio (test code = A/G ratio) 1.3 >1.0 bilirubin,total (test code = <0.3 0.0-1.2 bilirubin,total) AST/SGOT (test code = AST/SGOT) 21 U/L 15-32 Alanine aminotransferase 19 U/L 0-33 [Enzymatic activity/volume] in Serum or Plasma (test code = 1742-6) Alkaline phosphatase [Enzymatic 89 U/L 35-105 activity/volume] in Serum or Plasma (test code = 6768-6) [facility] GroupUrinalysis complete panel - [id number] 00:00:00 Test Item Value Reference Range Interpretation Comments Color of Urine by Auto (test light yellow code = 05156-2) Appearance of Urine (test code = SL cloudy clear A 5767-9) Glucose [Presence] in Urine by negative negative Automated test strip (test code = 23207-9) Bilirubin.total [Mass/volume] in negative negative Urine (test code = 1978-6) Ketones [Mass/volume] in Urine =1 negative H by Automated test strip (test code = 27249-9) Specific gravity of Urine by 1.011 1.003-1.030 Automated test strip (test code = 94174-1) blood urine (test code = blood negative negative urine) pH of Urine (test code = 2756-5) 7.000 5-9 protein urine (UA) (test code = negative negative protein urine (UA)) Urobilinogen [Presence] in Urine normal 0.2-1.0 (test code = 87453-7) Nitrite [Presence] in Urine by negative negative Test strip (test code = 5802-4) Leukocyte esterase [Presence] in =2 negative H Urine by Automated test strip (test code = 40274-8) Erythrocytes [#/volume] in Urine <1 0-5 by Automated count (test code = 798-9) Leukocytes [#/area] in Urine =20-29 0-5 H sediment by Automated count (test code = 17499-5) Epithelial cells [Presence] in =1-5 0-5 Urine sediment by Light microscopy (test code = 69476-8) Bacteria identified in Urine by moderate (2 none detect H Culture (test code = 630-4) Casts [#/area] in Urine sediment =11-14 none detect H by Automated count (test code = 38921-8) urine culture added? (test code yes = urine culture added?) [facility] HospitalMicroscopic observation [Identifier] in Unspecified specimen by Wet [id number] 00:00:00[facility] Auto Differential panel - [id number] 00:00:00 Test Item Value Reference Range Interpretation Comments white blood count (test code = 11.1 K/uL 4.0-11.5 white blood count) red blood count (test code = red 3.35 M/uL 3.80-5.20 L blood count) Hemoglobin [Mass/volume] in Blood 9.2 g/dL 10.5-15.7 L (test code = 718-7) hematocrit (test code = hematocrit) 29.7 % 34.0-50.0 L Erythrocyte mean corpuscular volume 88.6 fL 78-98 [Entitic volume] (test code = 51441-1) Erythrocyte mean corpuscular 27.5 pg 26.2-33.4 hemoglobin [Entitic mass] (test code = 32896-5) mean corpuscular HGB conc (test 31.1 g/dL 31.5-36.2 L code = mean corpuscular HGB conc) red cell distribution width (test 12.5 % 11.5-15.5 code = red cell distribution width) Platelets [#/volume] in Blood (test 209 K/uL 137-338 code = 33023-3) Platelet mean volume [Entitic 7.3 fL 8.4-11.8 L volume] in Blood (test code = 10308-8) Neutrophils.band form/100 72.2 % 44.4-80.1 leukocytes in Blood (test code = 95823-3) Lymphocytes/100 leukocytes in Body 20.8 % 10.0-50.0 fluid (test code = 56767-7) Monocytes/100 leukocytes in Blood 6.2 % 3.6-12.0 by Automated count (test code = 5905-5) Eosinophils/100 leukocytes in Blood 0.3 % 0.0-5.4 by Automated count (test code = 713-8) Basophils/100 leukocytes in 0.4 % 0.0-0.79 Unspecified specimen (test code = 29130-1) [facility]different[facility], [id number] 00:00:00 NeutrophilsBandLymphocyteAtypical LymphMonocyteEosinophilBasophilMetamyelocyteMyelocytePlatelet EstimatePlatelet MorphologyPoikilocytosisAnisocytosisMacrocytosisToxic GranulationHypersegmented PolysSmudge CellsMatarda Medical GroupChlamydia trachomatis+Neisseria gonorrhoeae DNA [Presence] in Cervix by Probe and target amplification method 2019-05-11 00:00:00ResultsMatarda Medical GroupBacteria identified in Urine by [id number] 00:00:00Bacteria Ur CultNctacharlotte [facility] hospitala Medical GroupReagin Ab [Presence] in Serum by [id number] 00:00:00 Test Item Value Reference Range Interpretation Comments Reagin Ab [Presence] in Serum by nonreactive nonreactive RPR (test code = 46145-5) [facility] HospitalHepatitis B virus surface Ag [Presence] in Serum 2019-05-11 00:00:00 Test Item Value Reference Range Interpretation Comments .hepatitis B surface antigen (test negative negative code = .hepatitis B surface antigen) [facility]Com[facility] 2000 [facility] - Serum or Plasma 2019-05-11 00:00:00 Test Item Value Reference Range Interpretation Comments Glucose [Mass/volume] in Serum or 72 mg/dL 74-106 L Plasma (test code = 2345-7) Urea nitrogen [Mass/volume] in 6 mg/dL 6-20 Serum or Plasma (test code = 3094-0) Osmolality of Serum or Plasma 270 280-300 L (test code = 2692-2) creatinine (test code = 0.3 mg/dL 0.50-0.90 L creatinine) glomerular filtration rate (test >60.00 code = glomerular filtration rate) Urea nitrogen/Creatinine [Mass 20.0 12-20 Ratio] in Serum or Plasma (test code = 3097-3) sodium level (test code = sodium 137 mmol/L 135-145 level) potassium level (test code = 2.9 mmol/L 3.5-5.2 L potassium level) chloride level (test code = 102 mmol/L 98-108 chloride level) CO2 (test code = CO2) 18 mmol/L 21-32 L anion gap (test code = anion gap) 19.9 mEq/L 12-20 calcium level (test code = calcium 8.7 mg/dL 8.6-10.0 level) total protein (test code = total 6.3 g/dL 6.6-8.7 L protein) albumin (test code = albumin) 3.6 g/dL 3.5-5.2 globulin (test code = globulin) 2.7 gm/dL A/G ratio (test code = A/G ratio) 1.3 >1.0 bilirubin,total (test code = <0.3 0.0-1.2 bilirubin,total) AST/SGOT (test code = AST/SGOT) 21 U/L 15-32 Alanine aminotransferase 19 U/L 0-33 [Enzymatic activity/volume] in Serum or Plasma (test code = 1742-6) Alkaline phosphatase [Enzymatic 89 U/L 35-105 activity/volume] in Serum or Plasma (test code = 6768-6) [facility] - [id number] 09:35:00 Test Item Value Reference Range Interpretation Comments Leukocytes (test code = Leukocytes) Negative Nitrite (test code = Nitrite) negative Urobilinogen (test code = 1 Urobilinogen) Protein (test code = Protein) Negative pH (test code = pH) 7.0 Blood (test code = Blood) Negative Specific Webb (test code = 1.020 Specific Webb) Ketone (test code = Ketone) Negative Bilirubin (test code = Bilirubin) Negative Glucose (test code = Glucose) Negative Appearance (test code = Appearance) Clear Color (test code = Color) Yellow [facility] panel - [id number] 09:35:00 Test Item Value Reference Range Interpretation Comments Leukocytes (test code = Leukocytes) Negative Nitrite (test code = Nitrite) negative Urobilinogen (test code = 1 Urobilinogen) Protein (test code = Protein) Negative pH (test code = pH) 7.0 Blood (test code = Blood) Negative Specific Webb (test code = 1.020 Specific Webb) Ketone (test code = Ketone) Negative Bilirubin (test code = Bilirubin) Negative Glucose (test code = Glucose) Negative Appearance (test code = Appearance) Clear Color (test code = Color) Yellow [facility] panel - [id number] 09:35:00 Test Item Value Reference Range Interpretation Comments Leukocytes (test code = Leukocytes) Negative Nitrite (test code = Nitrite) negative Urobilinogen (test code = 1 Urobilinogen) Protein (test code = Protein) Negative pH (test code = pH) 7.0 Blood (test code = Blood) Negative Specific Webb (test code = 1.020 Specific Webb) Ketone (test code = Ketone) Negative Bilirubin (test code = Bilirubin) Negative Glucose (test code = Glucose) Negative Appearance (test code = Appearance) Clear Color (test code = Color) Yellow [facility] Differential panel - [id number] 00:00:00 Test Item Value Reference Range Interpretation Comments white blood count (test code = 10.5 K/uL 4.0-11.5 white blood count) red blood count (test code = red 3.48 M/uL 3.80-5.20 L blood count) Hemoglobin [Mass/volume] in Blood 10.0 g/dL 10.5-15.7 L (test code = 718-7) hematocrit (test code = hematocrit) 30.5 % 34.0-50.0 Erythrocyte mean corpuscular volume 87.5 fL 78-98 [Entitic volume] (test code = 17969-0) Erythrocyte mean corpuscular 28.7 pg 26.2-33.4 hemoglobin [Entitic mass] (test code = 81008-5) mean corpuscular HGB conc (test 32.9 g/dL 31.5-36.2 code = mean corpuscular HGB conc) red cell distribution width (test 11.6 % 11.5-15.5 code = red cell distribution width) Platelets [#/volume] in Blood (test 239 K/uL 137-338 code = 11635-5) Platelet mean volume [Entitic 7.1 fL 8.4-11.8 L volume] in Blood (test code = 67368-8) Neutrophils.band form/100 75.8 % 44.4-80.1 leukocytes in Blood (test code = 36192-1) Lymphocytes/100 leukocytes in Body 17.7 % 10.0-50.0 fluid (test code = 41000-6) Monocytes/100 leukocytes in Blood 5.4 % 3.6-12.0 by Automated count (test code = 5905-5) Eosinophils/100 leukocytes in Blood 0.5 % 0.0-5.4 by Automated count (test code = 713-8) Basophils/100 leukocytes in 0.6 % 0.0-0.79 Unspecified specimen (test code = 01857-2) [facility] [Presence] in [id number] 00:00:00HIV P24 AgHIV-1/2 AbMatagorda Medical GroupBlood group antibody screen [Presence] in Serum or [id number] 00:00:00 Test Item Value Reference Range Interpretation Comments Blood group antibody screen positive [Presence] in Serum or Plasma (test code = 890-4) [facility] [Presence] in Serum by [id number] 00:00:00 Test Item Value Reference Range Interpretation Comments Reagin Ab [Presence] in Serum by nonreactive nonreactive RPR (test code = 80228-8) [facility] W Auto Differential panel - [id number] 00:00:00 Test Item Value Reference Range Interpretation Comments white blood count (test code = 10.5 K/uL 4.0-11.5 white blood count) red blood count (test code = red 3.48 M/uL 3.80-5.20 L blood count) Hemoglobin [Mass/volume] in Blood 10.0 g/dL 10.5-15.7 L (test code = 718-7) hematocrit (test code = hematocrit) 30.5 % 34.0-50.0 Erythrocyte mean corpuscular volume 87.5 fL 78-98 [Entitic volume] (test code = 25408-5) Erythrocyte mean corpuscular 28.7 pg 26.2-33.4 hemoglobin [Entitic mass] (test code = 86759-8) mean corpuscular HGB conc (test 32.9 g/dL 31.5-36.2 code = mean corpuscular HGB conc) red cell distribution width (test 11.6 % 11.5-15.5 code = red cell distribution width) Platelets [#/volume] in Blood (test 239 K/uL 137-338 code = 62953-2) Platelet mean volume [Entitic 7.1 fL 8.4-11.8 L volume] in Blood (test code = 52522-1) Neutrophils.band form/100 75.8 % 44.4-80.1 leukocytes in Blood (test code = 87407-1) Lymphocytes/100 leukocytes in Body 17.7 % 10.0-50.0 fluid (test code = 00136-3) Monocytes/100 leukocytes in Blood 5.4 % 3.6-12.0 by Automated count (test code = 5905-5) Eosinophils/100 leukocytes in Blood 0.5 % 0.0-5.4 by Automated count (test code = 713-8) Basophils/100 leukocytes in 0.6 % 0.0-0.79 Unspecified specimen (test code = 45450-8) [facility] GroupHIV [facility]+2 Ab [Presence] in [id number] 00:00:00HIV P24 AgHIV-1/2 AbMataWhitfield Medical Surgical HospitalBlood group antibody screen [Presence] in Serum or [id number] 00:00:00 Test Item Value Reference Range Interpretation Comments Blood group antibody screen positive [Presence] in Serum or Plasma (test code = 890-4) [facility] [Presence] in Serum by [id number] 00:00:00 Test Item Value Reference Range Interpretation Comments Reagin Ab [Presence] in Serum by nonreactive nonreactive RPR (test code = 86450-8) [facility] macro (dipstick) panel - [id number] 14:31:44 Test Item Value Reference Range Interpretation Comments Leukocytes (test code = Leukocytes) Negative Nitrite (test code = Nitrite) negative Urobilinogen (test code = .2 Urobilinogen) Protein (test code = Protein) Negative pH (test code = pH) 7.0 Blood (test code = Blood) Negative Specific Webb (test code = 1.020 Specific Webb) Ketone (test code = Ketone) Negative Bilirubin (test code = Bilirubin) Negative Glucose (test code = Glucose) Negative Appearance (test code = Appearance) Clear Color (test code = Color) Yellow [facility] (dipstick) panel - [id number] 14:31:44 Test Item Value Reference Range Interpretation Comments Leukocytes (test code = Leukocytes) Negative Nitrite (test code = Nitrite) negative Urobilinogen (test code = .2 Urobilinogen) Protein (test code = Protein) Negative pH (test code = pH) 7.0 Blood (test code = Blood) Negative Specific Webb (test code = 1.020 Specific Webb) Ketone (test code = Ketone) Negative Bilirubin (test code = Bilirubin) Negative Glucose (test code = Glucose) Negative Appearance (test code = Appearance) Clear Color (test code = Color) Yellow [facility] (dipstick) panel - [id number] 14:31:44 Test Item Value Reference Range Interpretation Comments Leukocytes (test code = Leukocytes) Negative Nitrite (test code = Nitrite) negative Urobilinogen (test code = .2 Urobilinogen) Protein (test code = Protein) Negative pH (test code = pH) 7.0 Blood (test code = Blood) Negative Specific Webb (test code = 1.020 Specific Webb) Ketone (test code = Ketone) Negative Bilirubin (test code = Bilirubin) Negative Glucose (test code = Glucose) Negative Appearance (test code = Appearance) Clear Color (test code = Color) Yellow [facility]
[2023-11-01] MEDS ORDERED: NA CHLORIDE 0.9% 1,000 ML ONE (11:37)
[2023-11-01] MEDS ORDERED: ONDANSETRON 4 MG/2 ML VIAL ONE (11:37)
[2023-11-01 11:59] LABS: Absolute Lymphocytes (CBC) 1.1 K/uL (0.7-4.9); Hematocrit 39.3 % (36.0-45.0); Lymphocytes % 21.3 % (15.3-44.8); MCV 85.7 fL (80-100); MPV 8.4 fL (7.6-11.3); Platelets 196 thou/uL (152-406); RBC Red Blood Cell Count 4.59 M/uL (3.86-4.86)
[2023-11-01 12:11] LABS: Albumin 3.9 g/dL (3.4-5.0); Bilirubin Total 0.4 mg/dL (0.2-1.0); Protein, Total 7.9 g/dL (6.4-8.2)
[2023-11-01 12:23] LABS: Specific Gravity 1.007 (1.005-1.030)
[2023-11-01 12:24] LABS: Specific Gravity 1.007 (1.005-1.030); Urine Bacteria <20 /HPF (<20); Urine Bilirubin NEGATIVE (Negative); Urine Blood Negative (Negative); Urine Clarity Turbid (Clear); Urine Color Light-Yellow (Yellow); Urine Glucose NEGATIVE (Negative); Urine Protein NEGATIVE (Negative); Urine RBC None Seen /HPF (None Seen); Urine Urobilinogen Normal (Normal); Urine pH 6.5 (5.0-7.0)
--- NOTE | 2023-11-01 12:29 | RAD REPORT ---
EXAM DESCRIPTION: RAD - Chest Single View - 11/01/2023 12:22 pm CLINICAL HISTORY: COUGH Chest pain. COMPARISON: <Comparisons> FINDINGS: Portable technique limits examination quality. The lungs are grossly clear. The heart is normal in size. No displaced fractures. IMPRESSION: No acute intrathoracic process suspected.
--- NOTE | 2023-11-01 12:57 | EDPHYS ---
Physician Documentation [facility] Name: Aleyda Macias Age: 28 yrs Sex: Female : 1995 Arrival Date: 11/01/2023 Time: 11:07 Bed 20 Private MD: ED Physician Abad Sarabia HPI: 11/01 11:25 This 28 yrs old Female presents to ER via Ambulatory with complaints of Fever, jh7 Vomiting/Diarrhea, Sore Throat, Cough. 11:25 Patient complains of sore throat, sinus congestion, productive cough, intermittent jh7 fever, and vomiting with diarrhea for the past 10 days. She denies any past medical history. States that she was exposed to the flu at the time the symptoms began.. 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 - Social history:: Smoking status: Patient denies any tobacco usage or history of. Patient/guardian denies using alcohol. ROS: 11:25 Eyes: Negative for injury, pain, redness, and discharge, Neck: Negative for injury, jh7 pain, and swelling, Cardiovascular: Negative for chest pain, palpitations, and edema, 11:25 Back: Negative for injury and pain, MS/Extremity: Negative for injury and deformity, Skin: Negative for injury, rash, and discoloration, Neuro: Negative for headache, weakness, numbness, tingling, and seizure, 11:25 Constitutional: Positive for body aches, fatigue, fever, 11:25 ENT: Positive for sinus congestion, sore throat, 11:25 Respiratory: Positive for cough, 11:25 Abdomen/GI: Positive for nausea, vomiting, and diarrhea, abdominal cramps, 11:25 All other systems are negative, Exam: 11:25 Head/Face: Normocephalic, atraumatic. Neck: Trachea midline, no thyromegaly or masses jh7 palpated, and no cervical lymphadenopathy. Supple, full range of motion without nuchal rigidity, or vertebral point tenderness. No Meningismus. Cardiovascular: Regular rate and rhythm with a normal S1 and S2. No gallops, murmurs, or rubs. Normal PMI, no JVD. No pulse deficits. Abdomen/GI: Soft, non-tender, with normal bowel sounds. No distension or tympany. No guarding or rebound. No evidence of tenderness throughout. Skin: Warm, dry with normal turgor. Normal color with no rashes, no lesions, and no evidence of cellulitis. MS/ Extremity: Pulses equal, no cyanosis. Neurovascular intact. Full, normal range of motion. Neuro: Awake and alert, GCS 15, oriented to person, place, time, and situation. Motor strength 5/5 in all extremities. Sensory grossly intact. Normal gait. 11:25 Constitutional: The patient appears alert, awake, obviously ill, 11:25 ENT: Nose: nasal drainage, and is seen coming from both nares, that is purulent, 11:25 Respiratory: the patient does not display signs of respiratory distress, Respirations: normal, Breath sounds: are clear throughout, Moist cough noted, Vital Signs: 11:22 Weight 47.63 kg; Height 5 ft. 3 in. ; Pain 8/10; ld1 11:43 BP 132 / 98; Pulse 85; Resp 18; Temp 98.5(O); Pulse Ox 100% on R/A; me1 12:00 BP 107 / 89; Pulse 91; Resp 18; Pulse Ox 100% on R/A; me1 12:30 BP 122 / 78; Pulse 89; Resp 17; Pulse Ox 100% on R/A; me1 12:30 BP 131 / 64; Pulse 98; Resp 16; Pulse Ox 100% on R/A; me1 13:48 BP 128 / 84; Pulse 91; Resp 17; Pulse Ox 99% on R/A; me1 11:22 Body Mass Index 18.60 (47.63 kg, 160.02 cm) ld1 11:22 Pain Scale: Adult ld1 MDM: 11:11 Patient medically screened. 7 13:00 Differential diagnosis: viral Infection, bacterial infection, URI, bronchitis, jh7 pneumonia Sinusitis, gastroenteritis, colitis. Data reviewed: vital signs, nurses notes, lab test result(s), radiologic studies, plain films. I considered the following discharge prescriptions or medication management in the emergency department Medications were administered in the Emergency Department. See MAR. Historians other than the Patient: Parent: Mom. Counseling: I had a detailed discussion with the patient and/or guardian regarding the historical points, exam findings, and any diagnostic results supporting the discharge/admit diagnosis, to return to the emergency department if symptoms worsen or persist or if there are any questions or concerns that arise at home. Response to treatment: the patient's symptoms have markedly improved after treatment, Patient passed p.o. challenge. 11/01 11:16 Order name: CBC with Diff; Complete Time: 12:26 [facility] 11/01 11:16 Order name: CMP; Complete Time: 12:26 [facility] 11/01 11:16 Order name: Lipase; Complete Time: 12:26 [facility] 11/01 11:16 Order name: Test, Urine; Complete Time: 12:26 [facility] 11/01 11:16 Order name: Urinalysis w/ reflexes; Complete Time: 12:26 [facility] 11/01 11:17 Order name: XRAY Chest (1 view); Complete Time: 12:39 [facility] 11/01 11:17 Order name: IV Saline Lock; Complete Time: 11:40 [facility] 11/01 11:17 Order name: Labs collected and sent; Complete Time: 11:40 [facility] 11/01 12:40 Order name: PO challenge; Complete Time: 12:57 jh Administered Medications: 11:40 Drug: NS 0.9% IV 1000 ml IV at 1 bolus Per protocol; 1000 mL bolus Route: IV; Rate: 1 me1 bolus; Site: right antecubital; 13:48 Follow up: IV Status: Completed infusion me1 11:40 Drug: Ondansetron IVP 4 mg IVP once; over 2 minutes Route: IVP; Site: right antecubital;me1 13:48 Follow up: Response: No adverse reaction me1 12:57 Drug: Potassium Chloride PO 40 mEq PO once Route: PO; me1 13:48 Follow up: Response: No adverse reaction me1 Disposition Summary: 11/01/23 12:57 Discharge Ordered Notes: Location: Home [facility] Problem: new [facility] Symptoms: have improved jh7 Condition: Stable [facility] Diagnosis - Acute maxillary sinusitis jh7 - Nausea with vomiting, unspecified jh7 Followup: [facility] - With: Private Physician - When: 2 - 3 days - Reason: Recheck today's complaints Discharge Instructions: - Discharge Summary Sheet [facility] - Nausea and Vomiting, Adult [facility] - Sinusitis, Adult [facility] Forms: - Medication Reconciliation Form [facility] - Thank You Letter [facility] - Antibiotic Education [facility] - Patient Portal Instructions [facility] - Leadership Thank You Letter [facility] Prescriptions: - ondansetron 4 mg Oral Tablet,disintegrating - take 1 tablet ORAL route every 4-6 hours As needed; 20 tablet; Refills: 0, [facility] Product Selection Permitted - Amoxicillin 875 mg Oral Tablet - take 1 tablet ORAL route every 12 hours for 10 days; 20 tablet; Refills: 0, [facility] Product Selection Permitted - Tessalon Perles 100 mg Oral Capsule - take 1 capsule ORAL route every 8 hours As needed; 15 capsule; Refills: 0, [facility] Product Selection Permitted - Medrol (Heber) 4 mg Oral Tablets, Dose Pack - take 1 tablet ORAL route as directed - follow package instructions; 1 packet; [facility] Refills: 0, Product Selection Permitted Signatures: Dispatcher [employer] EDPriscila Espinosa RN RN ld1 Trinidad Whaley, STRETCH BOX TENDER [place] [address] Marci Salazar RN RN me1
--- NOTE | 2023-11-01 12:57 | ER ---
Nurse's Notes [facility] Name: Aleyda Macias Age: 28 yrs Sex: Female : 1995 Arrival Date: 11/01/2023 Time: 11:07 Bed 20 Private MD: Diagnosis: Acute maxillary sinusitis;Nausea with vomiting, unspecified Presentation: 11/01 11:22 Chief complaint: Patient states: LLQ pain, N/V x 2 days. Coronavirus screen: At this ld1 time, the client does not indicate any symptoms associated with coronavirus-19. Ebola Screen: No symptoms or risks identified at this time. Risk Assessment: Do you want to hurt yourself or someone else? Patient reports no desire to harm self or others. Onset of symptoms was November 01, 2023. 11:22 Method Of Arrival: Ambulatory ld1 11:22 Acuity: BA 3 ld1 13:07 Initial Sepsis Screen: Does the patient meet any 2 criteria? No. Patient's initial ri1 sepsis screen is negative. Does the patient have a suspected source of infection? Yes: Productive cough/pneumonia. Triage Assessment: 11:23 General: Appears in no apparent distress. uncomfortable, Behavior is calm, cooperative, ld1 appropriate for age. Pain: Complains of pain in left lower quadrant Pain does not radiate. Pain currently is 8 out of 10 on a pain scale. Quality of pain is described as throbbing, Pain began 2-3 days ago. Is continuous. EENT: No signs and/or symptoms were reported regarding the EENT system. Neuro: Level of Consciousness is awake, alert, obeys commands, Oriented to person, place, time, situation. Cardiovascular: Capillary refill < 3 seconds Patient's skin is warm and dry. Respiratory: Airway is patent Respiratory effort is even, unlabored. GI: Abdomen is flat, non-distended, Reports lower abdominal pain, nausea, vomiting. : No signs and/or symptoms were reported regarding the genitourinary system. Derm: No signs and/or symptoms reported regarding the dermatologic system. Musculoskeletal: No signs and/or symptoms reported regarding the musculoskeletal system. 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 - Social history:: Smoking status: Patient denies any tobacco usage or history of. Patient/guardian denies using alcohol. Screenin:06 [facility] ED Fall Risk Assessment (Adult) History of falling in the last 3 months, ri1 including since admission No falls in past 3 months (0 pts) Confusion or Disorientation No (0 pts) Intoxicated or Sedated No (0 pts) Impaired Gait No (0 pts) Mobility Assist Device Used No (0 pt) Altered Elimination No (0 pt) Score/Fall Risk Level 0 - 2 = Low Risk Maintained a safe environment, Provided non-skid footwear, Hourly rounding (assess needs \T\ fall precautionary measures) done. Abuse screen: Denies threats or abuse. Nutritional screening: No deficits noted. Tuberculosis screening: No symptoms or risk factors identified. Assessment: 13:06 Reassessment: No changes from previously documented assessment. ri1 Vital Signs: 11:22 Weight 47.63 kg; Height 5 ft. 3 in. ; Pain 8/10; ld1 11:43 BP 132 / 98; Pulse 85; Resp 18; Temp 98.5(O); Pulse Ox 100% on R/A; me1 12:00 BP 107 / 89; Pulse 91; Resp 18; Pulse Ox 100% on R/A; me1 12:30 BP 122 / 78; Pulse 89; Resp 17; Pulse Ox 100% on R/A; me1 12:30 BP 131 / 64; Pulse 98; Resp 16; Pulse Ox 100% on R/A; me1 13:48 BP 128 / 84; Pulse 91; Resp 17; Pulse Ox 99% on R/A; me1 11:22 Body Mass Index 18.60 (47.63 kg, 160.02 cm) ld1 11:22 Pain Scale: Adult ld1 ED Course: 11:09 Patient arrived in ED. mr 11:11 Trinidad Whaley FNP is [facility] 11:11 Abad Sarabia MD is Attending Physician. [facility] 11:21 Marci Salazar, FLORECITA is Primary Nurse. ri1 11:22 Triage completed. ld1 11:23 Arm band placed on right wrist. ld1 11:40 Inserted saline lock: 22 gauge in right antecubital area, using aseptic technique. me1 11:40 CBC with Diff Sent. me1 11:40 CMP Sent. me1 11:40 Lipase Sent. me1 11:40 Test, Urine Sent. me1 11:40 Urinalysis w/ reflexes Sent. me1 12:24 XRAY Chest (1 view) In Process Unspecified. EDMS 13:06 Patient has correct armband on for positive identification. Bed in low position. Call me1 light in reach. Side rails up X 1. Provided Education on: POC. Verbalized understanding. . 13:06 No provider procedures requiring assistance completed. me1 13:55 IV discontinued, intact, bleeding controlled, No redness/swelling at site. Pressure me1 dressing applied. Administered Medications: 11:40 Drug: NS 0.9% IV 1000 ml IV at 1 bolus Per protocol; 1000 mL bolus Route: IV; Rate: 1 me1 bolus; Site: right antecubital; 13:48 Follow up: IV Status: Completed infusion me1 11:40 Drug: Ondansetron IVP 4 mg IVP once; over 2 minutes Route: IVP; Site: right antecubital;me1 13:48 Follow up: Response: No adverse reaction me1 12:57 Drug: Potassium Chloride PO 40 mEq PO once Route: PO; me1 13:48 Follow up: Response: No adverse reaction me1 Medication: 13:06 VIS not applicable for this client. me1 Outcome: 12:57 Discharge ordered by . [facility] 13:07 Condition: stable me1 13:55 Discharged to home via ambulance, with family, me1 13:55 Discharge instructions given to patient, family, Instructed on discharge instructions, follow up and referral plans. medication usage, Demonstrated understanding of instructions, follow-up care, medications, Prescriptions given X 4, 13:56 Patient left the ED. me1 Signatures: Dispatcher [employer] EDVT Marie Kahn, Tim Reg mr VenturaPriscila, RN RN ld1 Trinidad Whaley, GUI DEVELOPER GUI DEVELOPER [facility] Marci Salazar RN RN me1 Corrections: (The following items were deleted from the chart) 13:06 11:22 Chief complaint: Patient states: LLQ pain, N/V x 2 days ld1 me1
[2023-11-01] MEDS ORDERED: POTASSIUM CL SA 10 MEQ TAB PO ONE (13:04)
[2023-11-01 14:38] VITALS: TEMP 98.5
[2023-11-01 14:42] VITALS: BP 128/84; O2SAT 99
== END 2023-11-01 13:56 | disposition home or self-care (01) ==
LOC: ER 11:07
DX: J01.00 Acute maxillary sinusitis, unspecified (principal); R11.2 Nausea with vomiting, unspecified
CPT/HCPCS: 96361; 85025; 81001; 36415; 81025; 83690; 80053; 71045; 96374; 99284; J2405; J7030

== ENCOUNTER 2024-07-16 15:32 | Emergency (ER) | payer OTHER ==
[2024-07-16] MEDS ORDERED: ONDANSETRON 4 MG/2 ML VIAL ONE (15:56)
[2024-07-16] MEDS ORDERED: KETOROLAC 30 MG/ML INJ ONE (15:56)
[2024-07-16] MEDS ORDERED: NA CHLORIDE 0.9% 1,000 ML ONE (15:57)
[2024-07-16 16:23] LABS: Absolute Eosinophils 0.1 K/uL (0-0.5); Absolute Lymphocytes (CBC) 1.8 K/uL (0.7-4.9); Absolute Monocytes 0.2 K/uL (0.1-1.3); Absolute Neutrophil 4.7 K/uL (1.8-8.0); Basophils % 0.6 % (0-1.3); Eosinophils % 1.6 % (0-4.4); Hematocrit 41.1 % (36.0-45.0); Hemoglobin 13.6 g/dL (12.0-15.0); Lymphocytes % 26.5 % (15.3-44.8); MCH 29.7 pg (27.0-35.0); MCHC 33.1 g/dL (32.0-36.0); MCV 89.5 fL (80-100); MPV 8.3 fL (7.6-11.3); Monocytes % 2.8 % (3.3-12.3); Neutrophils % 68.5 % (41.7-73.7); Platelets 282 thou/uL (152-406); Red Cell Distribution Width 13.3 % (12.1-15.2)
[2024-07-16 16:34] LABS: Albumin 4.1 g/dL (3.4-5.0); Albumin/Globulin Ratio 1.1 (1.1-1.8); Anion Gap 7.8 mEq/L (5.0-15.0); Bilirubin Total 0.6 mg/dL (0.2-1.0); Globulin 3.8 g/dL (2.3-3.5); Potassium 3.8 mEq/L (3.5-5.1); Protein, Total 7.9 g/dL (6.4-8.2)
[2024-07-16 16:43] LABS: Specific Gravity < 1.005 (1.005-1.030)
[2024-07-16 16:44] LABS: Specific Gravity < 1.005 (1.005-1.030); Sqamous Epithelial <5 /HPF (None Seen); Urine Bacteria None Seen /HPF (<20); Urine Bilirubin NEGATIVE (Negative); Urine Blood Negative (Negative); Urine Clarity Turbid (Clear); Urine Color Colorless (Yellow); Urine Culture Reflex Order NOT NEEDED; Urine Glucose NEGATIVE (Negative); Urine Ketones NEGATIVE (Negative); Urine Microscopic Reflex YN ORDER UMIC; Urine Nitrite NEGATIVE (Negative); Urine Protein NEGATIVE (Negative); Urine RBC <5 /HPF (None Seen); Urine Urobilinogen Normal (Normal); Urine WBC <5 /HPF (<5)
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
[2024-07-16] MEDS ORDERED: DIPHENHYDRAMINE 50 MG/ML VIAL ONE (19:12)
[2024-07-16] MEDS ORDERED: ACETAMINOPHEN 325 MG TABLET ONE (19:12)
[2024-07-16] MEDS ORDERED: METOCLOPRAMIDE 10 MG/2mL INJ ONE (19:12)
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
[2024-07-16 19:50] VITALS: O2SAT 100
[2024-07-16 19:52] VITALS: TEMP 98.2
[2024-07-16 19:53] VITALS: BP 127/80
--- OUTSIDE RECORDS SUMMARY | 2024-07-19 08:44 | XMS REPORT | Continuity of Care Document ---
Author Name Unknown Address [address] [place] [address] [facility] Address [address] [facility] 1 [address] [place] [address] Care Team Providers Care [employer] Name Role Phone Ghislaine_Abdulaziz Attending Clinician Unavailable SHERRON Attending Clinician Unavailable TK CINTRON Attending Clinician UnavailGÓMEZ Griffin Attending Clinician Unavailable KAREL BROOKE Attending Clinician Unavaila LÁZARO Joel Attending Clinician Unavailab JUN Daley Attending Clinician Unavailable KELLY MAYFIELD Attending Clinician Unavailable CLAUDE ZAMUDIO Attending Clinician Unavailable ALISSA MACK Attending Clinician Unavailab dale Scanlon_Pappabhavna Admitting Clinician Unavailable SHERRON Admitting Clinician Unavailable TK CINTRON Admitting Clinician UnavailKAREL Escobar Admitting Clinician Unavaila dane Payers Payer Name Policy Type Policy Number Effective Date Expirati on Date Source [facility] (MEDICAID REPLACEMENT - HMO) [id number] [facility] [id number] [place] [id number] 2017 00:00:00 [facility] [place] (MEDICAID HMO) [id number] 2016 00:00:00 [place] [facility] [place] [id number] [place] [facility] (INSTITUTIONAL) [id number] [place] [id number] [place] [id number] 2013 00:00:00 Problems Condition Name Condition Details Condition Category Status Onset Date Resolution Date Last Treatment Date Treating Clinician Comments Source Primary dysmenorrh ea Primary Dysmenorrh ea Problem Active 08-18 00:00: 00 [facility] Blood group O Rh(D) negative Blood Group O Rh(D) Negative Problem Active [facility] Allergies, Adverse Reactions, Alerts Allergy Name Allergy Type Status Severity Reaction(s) Onset Date Inactive Date Treating Clinician Comments Source 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 Ordering Clinician Indication Dosage Frequency Signature (SIG) Comments Components Source clindamycin HCl 300 mg capsule TAKE 1 CAPSULE BY MOUTH THREE TIMES DAILY FOR 7 DAYS clindamycin HCl 300 mg capsule TAKE 1 CAPSULE BY MOUTH THREE TIMES DAILY FOR 7 DAYS No clindamyci n HCl 300 mg capsule TAKE 1 CAPSULE BY MOUTH THREE TIMES DAILY FOR 7 DAYS [facility] doxycycline monohydrate 100 mg capsule TAKE 1 CAPSULE BY MOUTH TWICE DAILY FOR 7 DAYS doxycycline monohydrate 100 mg capsule TAKE 1 CAPSULE BY MOUTH TWICE DAILY FOR 7 DAYS No doxycyclin e monohydrat e 100 mg capsule TAKE 1 CAPSULE BY MOUTH TWICE DAILY FOR 7 DAYS [facility] Estarylla 0.25 mg-35 mcg tablet TAKE 1 TABLET BY MOUTH EVERY DAY Estarylla 0.25 mg-35 mcg tablet TAKE 1 TABLET BY MOUTH EVERY DAY No Estarylla 0.25 mg-35 mcg tablet TAKE 1 TABLET BY MOUTH EVERY DAY [facility] metronidazo le 500 mg tablet TAKE 2 TABLETS BY MOUTH EVERY 2 WEEKS metronidazo le 500 mg tablet TAKE 2 TABLETS BY MOUTH EVERY 2 WEEKS No metronidaz ole 500 mg tablet TAKE 2 TABLETS BY MOUTH EVERY 2 WEEKS [facility] Flagyl 500 mg tablet Take 2 tablets every 2 weeks by oral route. Flagyl 500 mg tablet Take 2 tablets every 2 weeks by oral route. No 2 Q2W Flagyl 500 mg tablet Take 2 tablets every 2 weeks by oral route. [facility] Sprintec (28) 0.25 mg-35 mcg tablet Take 1 tablet every day by oral route. Sprintec (28) 0.25 mg-35 mcg tablet Take 1 tablet every day by oral route. No 1 Q1D Sprintec (28) 0.25 mg-35 mcg tablet Take 1 tablet every day by oral route. [facility] Vital Signs Vital Name Observation Time Observation Value Comments S ource BP Diastolic 2022-09-05 00:00:00 67 mm[Hg] [facility] Height 2022-09-05 00:00:00 65 [in_i] [facility] BMI (Body Mass Index) 2022-09-05 00:00:00 18.6 kg/m2 [facility] BP Systolic 2022-09-05 00:00:00 113 mm[Hg] [facility] Body Weight 2022-09-05 00:00:00 111.8 [lb_av] [facility] BP Diastolic 2022-08-19 00:00:00 72 mm[Hg] [facility] Height 2022-08-19 00:00:00 65 [in_i] [facility] BMI (Body Mass Index) 2022-08-19 00:00:00 19 kg/m2 [facility] BP Systolic 2022-08-19 00:00:00 124 mm[Hg] [facility] Body Weight 2022-08-19 00:00:00 114.1 [lb_av] [facility] BP Diastolic 2022-04-11 00:00:00 76 mm[Hg] [facility] Height 2022-04-11 00:00:00 65 [in_i] [facility] BMI (Body Mass Index) 2022-04-11 00:00:00 18.5 kg/m2 [facility] BP Systolic 2022-04-11 00:00:00 119 mm[Hg] [facility] Body Weight 2022-04-11 00:00:00 111.2 [lb_av] [facility] BP Diastolic 2022-03-11 00:00:00 76 mm[Hg] [facility] Height 2022-03-11 00:00:00 65 [in_i] [facility] BMI (Body Mass Index) 2022-03-11 00:00:00 18.4 kg/m2 [facility] BP Systolic 2022-03-11 00:00:00 125 mm[Hg] [facility] Body Weight 2022-03-11 00:00:00 110.5 [lb_av] [facility] BP Diastolic 2021-06-11 00:00:00 75 mm[Hg] [facility] Height 2021-06-11 00:00:00 65 [in_i] [facility] BMI (Body Mass Index) 2021-06-11 00:00:00 18 kg/m2 [facility] BP Systolic 2021-06-11 00:00:00 120 mm[Hg] [facility] Body Weight 2021-06-11 00:00:00 107.9 [lb_av] [facility] BP Diastolic 2019-08-19 00:00:00 62 mm[Hg] [facility] Height 2019-08-19 00:00:00 65 [in_i] [facility] BMI (Body Mass Index) 2019-08-19 00:00:00 20.7 kg/m2 [facility] BP Systolic 2019-08-19 00:00:00 133 mm[Hg] [facility] Body Weight 2019-08-19 00:00:00 124.4 [lb_av] [facility] Height 2019-08-09 00:00:00 65 [in_i] [facility] BMI (Body Mass Index) 2019-08-09 00:00:00 20.7 kg/m2 [facility] Body Weight 2019-08-09 00:00:00 124.4 [lb_av] [facility] BP Diastolic 2019-07-26 00:00:00 77 mm[Hg] [facility] Height 2019-07-26 00:00:00 65 [in_i] [facility] BMI (Body Mass Index) 2019-07-26 00:00:00 20.5 kg/m2 [facility] BP Systolic 2019-07-26 00:00:00 130 mm[Hg] [facility] Body Weight 2019-07-26 00:00:00 123 [lb_av] [facility] BP Diastolic 2019-07-06 00:00:00 75 mm[Hg] [facility] Height 2019-07-06 00:00:00 65 [in_i] [facility] BMI (Body Mass Index) 2019-07-06 00:00:00 20.8 kg/m2 [facility] BP Systolic 2019-07-06 00:00:00 131 mm[Hg] [facility] Body Weight 2019-07-06 00:00:00 125.1 [lb_av] [facility] BP Diastolic 2019-06-04 00:00:00 57 mm[Hg] [facility] Height 2019-06-04 00:00:00 65 [in_i] [facility] BMI (Body Mass Index) 2019-06-04 00:00:00 22.2 kg/m2 [facility] BP Systolic 2019-06-04 00:00:00 117 mm[Hg] [facility] Body Weight 2019-06-04 00:00:00 133.6 [lb_av] [facility] BP Diastolic 2019-05-20 00:00:00 75 mm[Hg] [facility] Height 2019-05-20 00:00:00 65 [in_i] [facility] BMI (Body Mass Index) 2019-05-20 00:00:00 21.6 kg/m2 [facility] BP Systolic 2019-05-20 00:00:00 113 mm[Hg] [facility] Body Weight 2019-05-20 00:00:00 129.9 [lb_av] [facility] BP Diastolic 2019-05-06 00:00:00 63 mm[Hg] [facility] Height 2019-05-06 00:00:00 65 [in_i] [facility] BMI (Body Mass Index) 2019-05-06 00:00:00 21.7 kg/m2 [facility] BP Systolic 2019-05-06 00:00:00 129 mm[Hg] [facility] Body Weight 2019-05-06 00:00:00 130.5 [lb_av] [facility] BP Diastolic 2019-04-28 00:00:00 57 mm[Hg] [facility] Height 2019-04-28 00:00:00 65 [in_i] [facility] BMI (Body Mass Index) 2019-04-28 00:00:00 21.2 kg/m2 [facility] BP Systolic 2019-04-28 00:00:00 114 mm[Hg] [facility] Body Weight 2019-04-28 00:00:00 127.6 [lb_av] [facility] Procedures Procedure Date / Time Performed Performing Clinicia n Source Bilateral Tubal Ligation 2019-07-28 00:00:00 [facility] Ligation of Bilateral Fallopian Tubes 2019-07-28 00:00:00 [facility] US, obstetric, limited 2019-05-20 00:00:00 [facility] ULTRASOUND REPEAT 2019-04-28 00:00:00 [facility] Plan of Care Planned Activity Planned Date Details Comments Source Diagnostic Test Pending 2022-09-05 00:00:00 urinalysis, dipstick [code = urinalysis, dipstick] [facility] Diagnostic Test Pending 2022-09-05 00:00:00 wet mount, vaginal [code = wet mount, vaginal] [facility] Encounters Start Date/Time End Date/Time Encounter Type Admission Type Attending Clinicians Care Facility Care Department Encounter ID Source 2024-02-16 00:00:00 2024-02-16 00:00:00 Outpatient G[facility] [id number] [facility] 2022-10-16 00:00:00 2022-10-16 00:00:00 Outpatient G[facility] [id number] [facility] 2022-10-14 00:00:00 2022-10-14 00:00:00 Outpatient G_[facility]appas [facility] [id number] [facility] 2022-10-10 00:00:00 2022-10-10 00:00:00 Outpatient G[facility]as [facility] [id number] [facility] 2022-09-25 00:00:00 2022-09-25 00:00:00 Outpatient G_Pappas [facility] [id number] [facility] 2022-09-24 00:00:00 2022-09-24 00:00:00 Outpatient G_Pappas [facility] [id number] [facility] 2022-09-05 00:00:00 2022-09-05 00:00:00 Outpatient G[facility]as [facility] [id number] [facility] 2022-09-05 00:00:00 2022-09-05 00:00:00 Tk Cintron MD: [address] [address] , Ph. [phone] [facility] [id number] [facility] 2022-08-19 00:00:00 2022-08-19 00:00:00 Outpatient [id number] 2022-08-19 00:00:00 2022-08-19 00:00:00 Tk Cintron MD: [address] [address] , Ph. [phone] [facility] [id number] [facility] 2022-08-13 00:00:00 2022-08-13 00:00:00 Outpatient G_Pappas [facility] [id number] [facility] 2022-04-11 11:12:00 2022-04-11 11:12:00 Outpatient G_Pappas [facility] [id number] [facility] 2022-04-11 11:12:00 2022-04-11 11:12:00 Outpatient G_Pappas [facility] [id number] [facility] 2022-04-11 00:00:00 2022-04-11 00:00:00 Tk Cintron MD: 600 [facility] [address], [place] [address] , Ph. [phone] [facility] [id number] [facility] 2022-03-25 03:06:00 2022-03-25 03:06:00 Outpatient LISTER_MELI [facility] [id number] [facility] 2022-03-11 11:12:00 2022-03-11 11:12:00 Outpatient TK CARVER [facility] [id number] [facility] 2022-03-11 11:10:00 2022-03-11 11:10:00 Outpatient G_Pappas [facility] [id number] [facility] 2022-03-11 11:10:00 2022-03-11 11:10:00 Outpatient G_Pappas [facility] [id number] [facility] 2022-03-11 11:10:00 2022-03-11 11:10:00 Outpatient G_Pappas [facility] [id number] [facility] 2022-03-11 11:10:00 2022-03-11 11:10:00 Outpatient G_Pappas [facility] [id number] [facility] 2022-03-11 00:00:00 2022-03-11 00:00:00 Tk Cintron MD: 600 [facility] [address], [place] [address] , Ph. [phone] [facility] [id number] [facility] 2022-03-08 10:08:00 2022-03-08 10:08:00 Outpatient G_[facility]appas [facility] [id number] [facility] 2021-07-23 08:36:00 2021-07-23 10:03:00 Emergency ER GÓMEZ HALE [facility] [id number] [facility] 2021-06-12 01:36:00 2021-06-12 01:36:00 Outpatient G_Pappas [facility] [id number] [facility] 2021-06-11 10:26:00 2021-06-11 10:26:00 Outpatient G_Pappas [facility] [id number] [facility] 2021-06-11 00:00:00 2021-06-11 00:00:00 Tk Cintron MD: [address] [address] , Ph. [phone] [facility] [id number] [facility] 2021-06-05 11:31:00 2021-06-05 11:31:00 Outpatient G_Pappas [facility] MMG [id number] [facility] 2021-06-05 11:31:00 2021-06-05 11:31:00 Outpatient G_Pappas [facility]G [id number] [facility] 2020-10-18 02:42:00 2020-10-18 02:42:00 Outpatient G_Pappas [facility]G [id number] [facility] 2019-08-19 00:00:00 2019-08-19 00:00:00 Tk Cintron MD: [address] [address] , Ph. [phone] [facility] [id number] [facility] 2019-08-09 00:00:00 2019-08-09 00:00:00 Tk Cintron MD: [address] [address] , Ph. [phone] [facility] [id number] [facility] 2019-07-28 07:40:00 2019-07-28 07:40:00 Outpatient TK [facility] [id number] [facility] 2019-07-26 00:00:00 2019-07-26 00:00:00 Tk Cintron MD: [address], [place] [address] , Ph. [phone] [facility] [id number] [facility] 2019-07-06 00:00:00 2019-07-06 00:00:00 Tk Cintron MD: [address], [place] [address] , Ph. [phone] [facility] [id number] [facility] 2019-06-15 10:35:00 2019-06-16 09:00:00 Inpatient ER TK [facility]ON [facility] [id number] [facility] 2019-06-04 00:00:00 2019-06-04 00:00:00 Karel Brooke MD: [address], [address], [place] [address] , Ph. [phone] [facility] [id number] [facility] 2019-05-20 00:00:00 2019-05-20 00:00:00 Tk Cintron MD: [address], [place] [address] , Ph. [phone] [facility] [id number] [facility] 2019-05-11 15:25:00 2019-05-11 17:48:00 Emergency ER KAREL BROOKE [facility] [id number] [facility] 2019-05-06 09:51:00 2019-05-06 09:51:00 Outpatient EL TK CINTRON [facility] [id number] [facility] 2019-05-06 00:00:00 2019-05-06 00:00:00 Tk Cintron MD: [address], [place] [address] , Ph. [phone] [facility] [id number] [facility] 2019-04-28 00:00:00 2019-04-28 00:00:00 Tk Cintron MD: [address], [place] [address] , Ph. [phone] [facility] [id number] [facility] 2018-11-18 11:33:00 2018-11-18 14:10:00 Emergency ER GEOFFREY TOKS [facility] [id number] [facility] 2018-02-23 09:05:00 2018-02-23 10:55:00 Emergency ER DULCE SANTANAMENT [facility] [id number] [facility] 2015-02-02 14:43:00 2015-02-02 18:00:00 Emergency ER , WASIM [facility] [id number] [facility] 2014-10-12 23:26:00 2014-10-13 00:55:00 Emergency ER , WASIM [facility] [id number] [facility] 2014-06-23 23:08:00 2014-06-24 01:35:00 Emergency ER CHAPARRO KELLY [facility] [id number] [facility] 2013-11-15 15:47:00 2013-11-15 18:05:00 Emergency ER CLAUDE ZAMUDIO [facility] [id number] [facility] 2013-09-20 10:59:00 2013-09-20 13:05:00 Emergency ER DULCE SANTANAMENT [facility] [id number] [facility] 2013-07-08 13:46:00 2013-07-08 15:05:00 Emergency ER LÁZARO SANTANA [facility] [id number] [facility] 2012-09-15 13:56:00 2012-09-17 11:00:00 Inpatient [facility]AREL [facility]END[facility] [id number] [facility] 2012-08-26 17:11:00 2012-08-26 20:30:00 Emergency ER KAREL BROOKE [facility] [id number] [facility] 2012-08-03 16:03:00 2012-08-03 17:20:00 Emergency KAREL MENDOZA [facility] [id number] [facility] 2012 18:54:00 2012 22:25:00 Emergency ER ALISSA MACK [facility] [id number] [facility] 2012-03-22 15:34:00 2012-03-22 20:05:00 Emergency ER JUN VEGA [facility] [id number] [facility] 2011-12-04 18:18:00 2011-12-04 20:25:00 Emergency ER LÁZARO SANTANA [facility] [id number] [facility] 2011-05-02 23:14:00 2011-05-03 00:41:00 Emergency ER JUN VEGA [facility] [id number] [facility] 2010-11-20 13:21:00 2010-11-20 17:55:00 Emergency ER LÁZARO SANTANA [facility] [id number] [facility] 2010-04-24 22:32:00 2010-04-24 23:50:00 Emergency ER JUN VEGA [facility] [id number] [facility] Results Test Description Test Time Test Comments Results Result Co mments Source [facility] panel - [id number] 15:39:54* Test Item Value Reference Range Interpretation Comme nts Leukocytes (test code = Leukocytes) Negative Nitrite (test code = Nitrite) negative Urobilinogen (test code = Urobilinogen) 1 Protein (test code = Protein) Negative pH (test code = pH) 5.5 Blood (test code = Blood) Non-Hemolyzed: Trace Specific Hubbard (test code = Specific Hubbard) 1.030 Ketone (test code = Ketone) Negative Bilirubin (test code = Bilirubin) Negative Glucose (test code = Glucose) Negative Appearance (test code = Appearance) Clear Color (test code = Color) Yellow [facility] + TV, DNA, urine/[id number] 00:00:00* Test Item Value Reference Range Interpretation Comme nts larisa - swab (test code = larisa - swab) normal gardnerella (test code = gardnerella) abnormal A CT/NG (test code = CT/NG) normal trichomonas vaginalis addon - swab (test code = trichomonas vaginalis addon - swab) normal [facility] [Identifier] in Vaginal fluid by Wet [id number] 11:32:01* Test Item Value Reference Range Interpretation Comme nts Clue Cells (test code = Clue Cells) positive WBCs (test code = WBCs) negative Trichomonads (test code = Trichomonads) negative Epithelial cells (test code = Epithelial cells) abnormal RBCs (test code = RBCs) negative [facility] [Identifier] in Vaginal fluid by Wet [id number] 11:32:01* Test Item Value Reference Range Interpretation Comme nts Clue Cells (test code = Clue Cells) positive WBCs (test code = WBCs) negative Trichomonads (test code = Trichomonads) negative Epithelial cells (test code = Epithelial cells) abnormal RBCs (test code = RBCs) negative [facility] macro (dipstick) panel - [id number] 11:06:08* Test Item Value Reference Range Interpretation Comme nts Leukocytes (test code = Leukocytes) Negative Nitrite (test code = Nitrite) negative Urobilinogen (test code = Urobilinogen) 1 Protein (test code = Protein) Negative pH (test code = pH) 7.5 Blood (test code = Blood) Negative Specific Hubbard (test code = Specific Hubbard) 1.015 Ketone (test code = Ketone) Negative Bilirubin (test code = Bilirubin) Negative Glucose (test code = Glucose) Negative Appearance (test code = Appearance) Clear Color (test code = Color) Yellow [facility] macro (dipstick) panel - [id number] 11:06:08* Test Item Value Reference Range Interpretation Comme nts Leukocytes (test code = Leukocytes) Negative Nitrite (test code = Nitrite) negative Urobilinogen (test code = Urobilinogen) 1 Protein (test code = Protein) Negative pH (test code = pH) 7.5 Blood (test code = Blood) Negative Specific Hubbard (test code = Specific Hubbard) 1.015 Ketone (test code = Ketone) Negative Bilirubin (test code = Bilirubin) Negative Glucose (test code = Glucose) Negative Appearance (test code = Appearance) Clear Color (test code = Color) Yellow [facility] observation [Identifier] in Vaginal fluid by Wet [id number] 10:50:00* Test Item Value Reference Range Interpretation Comme nts Clue Cells (test code = Clue Cells) negative WBCs (test code = WBCs) negative Trichomonads (test code = Trichomonads) negative Epithelial cells (test code = Epithelial cells) normal RBCs (test code = RBCs) negative [facility] macro (dipstick) panel - [id number] 10:31:06* Test Item Value Reference Range Interpretation Comme nts Leukocytes (test code = Leukocytes) Negative Nitrite (test code = Nitrite) negative Urobilinogen (test code = Urobilinogen) 4 Protein (test code = Protein) Negative pH (test code = pH) 7.0 Blood (test code = Blood) Negative Specific Hubbard (test code = Specific Hubbard) 1.015 Ketone (test code = Ketone) Negative Bilirubin (test code = Bilirubin) Negative Glucose (test code = Glucose) Negative Appearance (test code = Appearance) Clear Color (test code = Color) Yellow [facility] GroupMicroscopic observation [Identifier] in Vaginal fluid by Wet [id number] 11:41:06* Test Item Value Reference Range Interpretation Comme nts Clue Cells (test code = Clue Cells) positive WBCs (test code = WBCs) positive Trichomonads (test code = Trichomonads) negative Epithelial cells (test code = Epithelial cells) abnormal RBCs (test code = RBCs) negative [facility] macro (dipstick) panel - [id number] 10:25:52* Test Item Value Reference Range Interpretation Comme nts Leukocytes (test code = Leukocytes) Negative Nitrite (test code = Nitrite) negative Urobilinogen (test code = Urobilinogen) .2 Protein (test code = Protein) Negative pH (test code = pH) 5.5 Blood (test code = Blood) Negative Specific Hubbard (test code = Specific Hubbard) 1.005 Ketone (test code = Ketone) Negative Bilirubin (test code = Bilirubin) Negative Glucose (test code = Glucose) Negative Appearance (test code = Appearance) Clear Color (test code = Color) Yellow [facility] macro (dipstick) panel - [id number] 09:49:00* Test Item Value Reference Range Interpretation Comme nts Leukocytes (test code = Leukocytes) Negative Nitrite (test code = Nitrite) negative Urobilinogen (test code = Urobilinogen) .2 Protein (test code = Protein) Negative pH (test code = pH) 6.0 Blood (test code = Blood) Negative Specific Hubbard (test code = Specific Hubbard) 1.030 Ketone (test code = Ketone) Negative Bilirubin (test code = Bilirubin) Small Glucose (test code = Glucose) Negative Appearance (test code = Appearance) Clear Color (test code = Color) Yellow [facility] Center[facility] macro (dipstick) panel - [id number] 10:50:50* Test Item Value Reference Range Interpretation Comme nts Leukocytes (test code = Leukocytes) Negative Nitrite (test code = Nitrite) negative Urobilinogen (test code = Urobilinogen) .2 Protein (test code = Protein) Negative pH (test code = pH) 5.5 Blood (test code = Blood) Negative Specific Hubbard (test code = Specific Hubbard) 1.020 Ketone (test code = Ketone) Negative Bilirubin (test code = Bilirubin) Negative Glucose (test code = Glucose) Negative Appearance (test code = Appearance) Clear Color (test code = Color) Yellow [facility] - [id number] 10:50:50* Test Item Value Reference Range Interpretation Comme nts Leukocytes (test code = Leukocytes) Negative Nitrite (test code = Nitrite) negative Urobilinogen (test code = Urobilinogen) .2 Protein (test code = Protein) Negative pH (test code = pH) 5.5 Blood (test code = Blood) Negative Specific Hubbard (test code = Specific Hubbard) 1.020 Ketone (test code = Ketone) Negative Bilirubin (test code = Bilirubin) Negative Glucose (test code = Glucose) Negative Appearance (test code = Appearance) Clear Color (test code = Color) Yellow [facility] W Auto Differential panel - [id number] 09:51:00 * Test Item Value Reference Range Interpretation Comme nts white blood count (test code = white blood count) 6.8 K/uL 4.0-11.5 red blood count (test code = red blood count) 4.66 M/uL 3.80-5.20 hemoglobin (test code = hemoglobin) 12.6 g/dL 10.5-15.7 hematocrit (test code = hematocrit) 39.4 % 34.0-50.0 Erythrocyte mean corpuscular volume [Entitic volume] (test code = 42175-6) 84.5 fL 86-100 L mean corpuscular hemoglobin (test code = mean corpuscular hemoglobin) 27.0 pg 26.2-33.4 mean corpuscular HGB conc (t est code = mean corpuscular HGB conc) 32.0 g/dL 30-34 red cell distribution width (test code = red cell distribution width) 12.8 % 12.0-15.5 platelet count (test code = platelet count) 235 K/uL 165-450 mean platelet volume (test c ode = mean platelet volume) 10.2 fL 9.4-12.6 Neutrophils.segmented/100 leukocytes in Blood (test code = 69429-5) 60.0 % 44.4-80.1 Ig% (test code = Ig%) 0.3 % 0.0-0.4 lymphocyte% (test code = lymphocyte%) 32.8 % 10.0-50.0 mono % (test code = mono %) 5.3 % 3.6-12.0 eos % (test code = eos %) 1.3 % 0.0-5.4 Basophils/100 leukocytes in Unspecified specimen (test code = 52659-1) 0.3 % 0.1-1.2 absolute neutrophil count (t est code = absolute neutrophil count) 4.05 K/uL 1.56-6.13 Ig# (test code = Ig#) 0.0 K/uL 0.0-0.03 Lymphocytes [#/volume] in Unspecified specimen by Automated count (test code = 87989-3) 2.2 K/uL 1.18-3.74 mono # (test code = mono #) 0.36 K/uL 0.24-0.86 eos # (test code = eos #) 0.09 K/uL 0.04-0.36 basophil # (test code = baso aisha #) 0.02 K/uL 0.01-0.08 NRBC% (test code = NRBC%) 0 /100 WBC 0-0.2 NRBC# (test code = NRBC#) 0 K/uL [facility] W Auto Differential panel - [id number] 09:51:00 * Test Item Value Reference Range Interpretation Comme nts white blood count (test code = white blood count) 6.8 K/uL 4.0-11.5 red blood count (test code = red blood count) 4.66 M/uL 3.80-5.20 hemoglobin (test code = hemoglobin) 12.6 g/dL 10.5-15.7 hematocrit (test code = hematocrit) 39.4 % 34.0-50.0 Erythrocyte mean corpuscular volume [Entitic volume] (test code = 32006-1) 84.5 fL 86-100 L mean corpuscular hemoglobin (test code = mean corpuscular hemoglobin) 27.0 pg 26.2-33.4 mean corpuscular HGB conc (t est code = mean corpuscular HGB conc) 32.0 g/dL 30-34 red cell distribution width (test code = red cell distribution width) 12.8 % 12.0-15.5 platelet count (test code = platelet count) 235 K/uL 165-450 mean platelet volume (test c ode = mean platelet volume) 10.2 fL 9.4-12.6 Neutrophils.segmented/100 leukocytes in Blood (test code = 73463-7) 60.0 % 44.4-80.1 Ig% (test code = Ig%) 0.3 % 0.0-0.4 lymphocyte% (test code = lymphocyte%) 32.8 % 10.0-50.0 mono % (test code = mono %) 5.3 % 3.6-12.0 eos % (test code = eos %) 1.3 % 0.0-5.4 Basophils/100 leukocytes in Unspecified specimen (test code = 45866-9) 0.3 % 0.1-1.2 absolute neutrophil count (t est code = absolute neutrophil count) 4.05 K/uL 1.56-6.13 Ig# (test code = Ig#) 0.0 K/uL 0.0-0.03 Lymphocytes [#/volume] in Unspecified specimen by Automated count (test code = 03884-9) 2.2 K/uL 1.18-3.74 mono # (test code = mono #) 0.36 K/uL 0.24-0.86 eos # (test code = eos #) 0.09 K/uL 0.04-0.36 basophil # (test code = baso aisha #) 0.02 K/uL 0.01-0.08 NRBC% (test code = NRBC%) 0 /100 WBC 0-0.2 NRBC# (test code = NRBC#) 0 K/uL [facility] (dipstick) panel - [id number] 10:45:13* Test Item Value Reference Range Interpretation Comme nts Leukocytes (test code = Leukocytes) Negative Nitrite (test code = Nitrite) negative Urobilinogen (test code = Urobilinogen) .2 Protein (test code = Protein) Negative pH (test code = pH) 5.5 Blood (test code = Blood) Moderate Specific Hubbard (test code = Specific Hubbard) 1.025 Ketone (test code = Ketone) Negative Bilirubin (test code = Bilirubin) Negative Glucose (test code = Glucose) Negative Appearance (test code = Appearance) Clear Color (test code = Color) Yellow [facility]Ur[facility] macro (dipstick) panel - [id number] 10:45:13* Test Item Value Reference Range Interpretation Comme nts Leukocytes (test code = Leukocytes) Negative Nitrite (test code = Nitrite) negative Urobilinogen (test code = Urobilinogen) .2 Protein (test code = Protein) Negative pH (test code = pH) 5.5 Blood (test code = Blood) Moderate Specific Hubbard (test code = Specific Hubbard) 1.025 Ketone (test code = Ketone) Negative Bilirubin (test code = Bilirubin) Negative Glucose (test code = Glucose) Negative Appearance (test code = Appearance) Clear Color (test code = Color) Yellow [facility]Ur[facility] macro (dipstick) panel - [id number] 10:45:13* Test Item Value Reference Range Interpretation Comme nts Leukocytes (test code = Leukocytes) Negative Nitrite (test code = Nitrite) negative Urobilinogen (test code = Urobilinogen) .2 Protein (test code = Protein) Negative pH (test code = pH) 5.5 Blood (test code = Blood) Moderate Specific Hubbard (test code = Specific Hubbard) 1.025 Ketone (test code = Ketone) Negative Bilirubin (test code = Bilirubin) Negative Glucose (test code = Glucose) Negative Appearance (test code = Appearance) Clear Color (test code = Color) Yellow [facility] Auto Differential panel - [id number] 00:00:00 * Test Item Value Reference Range Interpretation Comme nts white blood count (test code = white blood count) 12.0 K/uL 4.0-11.5 H red blood count (test code = red blood count) 3.77 M/uL 3.80-5.20 L hemoglobin (test code = hemoglobin) 9.9 g/dL 10.5-15.7 L hematocrit (test code = hematocrit) 32.7 % 34.0-50.0 L Erythrocyte mean corpuscular volume [Entitic volume] (test code = 82270-5) 86.7 fL 86-100 Erythrocyte mean corpuscular hemoglobin [Entitic mass] (test code = 89796-0) 26.3 pg 26.2-33.4 mean corpuscular HGB conc (t est code = mean corpuscular HGB conc) 30.3 g/dL 30-34 red cell distribution width (test code = red cell distribution width) 13.2 % 12.0-15.5 platelet count (test code = platelet count) 219 K/uL 165-450 mean platelet volume (test c ode = mean platelet volume) 10.0 fL 9.4-12.6 Neutrophils.segmented/100 leukocytes in Blood (test code = 98722-0) 72.2 % 44.4-80.1 Ig% (test code = Ig%) 0.4 % 0.0-0.4 lymphocyte% (test code = lymphocyte%) 20.8 % 10.0-50.0 Monocytes/100 leukocytes in Blood by Automated count (test code = 5905-5) 5.5 % 3.6-12.0 Eosinophils/100 leukocytes i n Blood by Automated count (test code = 713-8) 0.8 % 0.0-5.4 Basophils/100 leukocytes in Unspecified specimen (test code = 87233-6) 0.3 % 0.1-1.2 absolute neutrophil count (t est code = absolute neutrophil count) 8.64 K/uL 1.56-6.13 H Ig# (test code = Ig#) 0.1 K/uL 0.0-0.03 H Lymphocytes [#/volume] in Unspecified specimen by Automated count (test code = 23334-0) 2.5 K/uL 1.18-3.74 mono # (test code = mono #) 0.66 K/uL 0.24-0.86 eos # (test code = eos #) 0.09 K/uL 0.04-0.36 basophil # (test code = baso aisha #) 0.03 K/uL 0.01-0.08 NRBC% (test code = NRBC%) 0 /100 WBC 0-0.2 NRBC# (test code = NRBC#) 0 K/uL [facility] CenterUrinal[facility] complete panel - [id number] 00:00:00* Test Item Value Reference Range Interpretation Comme nts Color of Urine by Auto (test code = 64690-6) colorless Appearance of Urine (test co de = 5767-9) clear clear Glucose [Presence] in Urine by Automated test strip (test code = 48849-2) negative negative Bilirubin.total [Mass/volume ] in Urine (test code = 1977-) negative negative Ketones [Mass/volume] in Uri ne by Automated test strip (test code = 31489-6) negative negative Specific gravity of Urine by Automated test strip (test code = 03120-8) 1.007 1.003-1.030 blood urine (test code = blo od urine) negative negative pH of Urine (test code = 2756-5) 6.500 5-9 protein urine (UA) (test cod e = protein urine (UA)) negative negative Urobilinogen [Presence] in Urine (test code = 16517-8) normal 0.2-1.0 Nitrite [Presence] in Urine by Test strip (test code = 5802-4) negative negative Leukocyte esterase [Presence ] in Urine by Automated test strip (test code = 33871-0) negative negative Erythrocytes [#/volume] in Urine by Automated count (test code = 798-9) <1 0-5 Leukocytes [#/area] in Urine sediment by Automated count (test code = 59323-0) <1 0-5 Epithelial cells [Presence] in Urine sediment by Light microscopy (test code = 37490-2) =1-5 0-5 Bacteria identified in Urine by Culture (test code = 630-4) none detected none detect Casts [#/area] in Urine sediment by Automated count (test code = 06979-3) none detected none detect urine culture added? (test c ode = urine culture added?) [facility] W Auto Differential panel - [id number] 00:00:00 * Test Item Value Reference Range Interpretation Comme nts white blood count (test code = white blood count) 11.8 K/uL 4.0-11.5 H red blood count (test code = red blood count) 4.03 M/uL 3.80-5.20 hemoglobin (test code = hemoglobin) 10.6 g/dL 10.5-15.7 hematocrit (test code = hematocrit) 34.3 % 34.0-50.0 Erythrocyte mean corpuscular volume [Entitic volume] (test code = 25582-3) 85.1 fL 86-100 L Erythrocyte mean corpuscular hemoglobin [Entitic mass] (test code = 82231-3) 26.3 pg 26.2-33.4 mean corpuscular HGB conc (t est code = mean corpuscular HGB conc) 30.9 g/dL 30-34 red cell distribution width (test code = red cell distribution width) 13.2 % 12.0-15.5 platelet count (test code = platelet count) 264 K/uL 165-450 mean platelet volume (test c ode = mean platelet volume) 10.0 fL 9.4-12.6 Neutrophils.segmented/100 leukocytes in Blood (test code = 66305-9) 78.3 % 44.4-80.1 Ig% (test code = Ig%) 0.7 % 0.0-0.4 H lymphocyte% (test code = lymphocyte%) 14.8 % 10.0-50.0 Monocytes/100 leukocytes in Blood by Automated count (test code = 5905-5) 5.8 % 3.6-12.0 Eosinophils/100 leukocytes i n Blood by Automated count (test code = 713-8) 0.2 % 0.0-5.4 Basophils/100 leukocytes in Unspecified specimen (test code = 85027-8) 0.2 % 0.1-1.2 absolute neutrophil count (t est code = absolute neutrophil count) 9.24 K/uL 1.56-6.13 H Ig# (test code = Ig#) 0.1 K/uL 0.0-0.03 H Lymphocytes [#/volume] in Unspecified specimen by Automated count (test code = 41170-9) 1.8 K/uL 1.18-3.74 mono # (test code = mono #) 0.68 K/uL 0.24-0.86 eos # (test code = eos #) 0.02 K/uL 0.04-0.36 L basophil # (test code = baso aisha #) 0.02 K/uL 0.01-0.08 NRBC% (test code = NRBC%) 0 /100 WBC 0-0.2 NRBC# (test code = NRBC#) 0 K/uL [facility] CenterRubella virus IgG Ab [Titer] in [id number] 00:00:00 * Test Item Value Reference Range Interpretation Comme nts Rubella virus IgG Ab [Units/volume] in Serum by Immunoassay (test code = 5334-8) 44.10 [IU]/mL [facility] GroupHepatitis B virus surface Ag [Presence] in Serum 2019-06-15 00:00:00* Test Item Value Reference Range Interpretation Comme nts .hepatitis B surface antigen (test code = .hepatitis B surface antigen) negative negative [facility] CenterReagin Ab [Presence] in Serum by [id number] 00:00:00* Test Item Value Reference Range Interpretation Comme nts Reagin Ab [Presence] in Seru m by RPR (test code = 98076-9) nonreactive nonreactive [facility] CenterUrinalysis macro (dipstick) panel - [id number] 09:56:57* Test Item Value Reference Range Interpretation Comme nts Leukocytes (test code = Leukocytes) Trace Nitrite (test code = Nitrite) negative Urobilinogen (test code = Urobilinogen) 1 Protein (test code = Protein) 30 pH (test code = pH) 7.5 Blood (test code = Blood) Negative Specific Hubbard (test code = Specific Hubbard) 1.020 Ketone (test code = Ketone) Negative Bilirubin (test code = Bilirubin) Negative Glucose (test code = Glucose) Negative Appearance (test code = Appearance) Clear Color (test code = Color) Yellow [facility] CenterUrinalysis macro (dipstick) panel - [id number] 09:56:57* Test Item Value Reference Range Interpretation Comme nts Leukocytes (test code = Leukocytes) Trace Nitrite (test code = Nitrite) negative Urobilinogen (test code = Urobilinogen) 1 Protein (test code = Protein) 30 pH (test code = pH) 7.5 Blood (test code = Blood) Negative Specific Hubbard (test code = Specific Hubbard) 1.020 Ketone (test code = Ketone) Negative Bilirubin (test code = Bilirubin) Negative Glucose (test code = Glucose) Negative Appearance (test code = Appearance) Clear Color (test code = Color) Yellow [facility] CenterUrinalysis complete panel - [id number] 00:00:00* Test Item Value Reference Range Interpretation Comme nts Color of Urine by Auto (test code = 46114-8) light yellow Appearance of Urine (test co de = 5767-9) SL cloudy clear A Glucose [Presence] in Urine by Automated test strip (test code = 87881-8) negative negative Bilirubin.total [Mass/volume ] in Urine (test code = 1978-6) negative negative Ketones [Mass/volume] in Uri ne by Automated test strip (test code = 60078-8) =1 negative H Specific gravity of Urine by Automated test strip (test code = 43838-3) 1.011 1.003-1.030 blood urine (test code = blo od urine) negative negative pH of Urine (test code = 2756-5) 7.000 5-9 protein urine (UA) (test cod e = protein urine (UA)) negative negative Urobilinogen [Presence] in U rine (test code = 61727-4) normal 0.2-1.0 Nitrite [Presence] in Urine by Test strip (test code = 5802-4) negative negative Leukocyte esterase [Presence ] in Urine by Automated test strip (test code = 14807-1) =2 negative H Erythrocytes [#/volume] in U rine by Automated count (test code = 798-9) <1 0-5 Leukocytes [#/area] in Urine sediment by Automated count (test code = 20067-7) =20-29 0-5 H Epithelial cells [Presence] in Urine sediment by Light microscopy (test code = 22350-5) =1-5 0-5 Bacteria identified in Urine by Culture (test code = 630-4) moderate (2 none detect H Casts [#/area] in Urine sedi ment by Automated count (test code = 25090-0) =11-14 none detect H urine culture added? (test c ode = urine culture added?) yes [facility] CenterMicroscopic observation [Identifier] in Unspecified specimen by Wet [id number] 00:00:00[facility] - [id number] 00:00:00* Test Item Value Reference Range Interpretation Comme nts white blood count (test code = white blood count) 11.1 K/uL 4.0-11.5 red blood count (test code = red blood count) 3.35 M/uL 3.80-5.20 L Hemoglobin [Mass/volume] in Blood (test code = 718-7) 9.2 g/dL 10.5-15.7 L hematocrit (test code = hematocrit) 29.7 % 34.0-50.0 L Erythrocyte mean corpuscular volume [Entitic volume] (test code = 60134-3) 88.6 fL 78-98 Erythrocyte mean corpuscular hemoglobin [Entitic mass] (test code = 76227-3) 27.5 pg 26.2-33.4 mean corpuscular HGB conc (t est code = mean corpuscular HGB conc) 31.1 g/dL 31.5-36.2 L red cell distribution width (test code = red cell distribution width) 12.5 % 11.5-15.5 Platelets [#/volume] in Bloo d (test code = 14967-9) 209 K/uL 137-338 Platelet mean volume [Entiti c volume] in Blood (test code = 81646-1) 7.3 fL 8.4-11.8 L Neutrophils.band form/100 leukocytes in Blood (test code = 72329-4) 72.2 % 44.4-80.1 Lymphocytes/100 leukocytes i n Body fluid (test code = 16857-6) 20.8 % 10.0-50.0 Monocytes/100 leukocytes in Blood by Automated count (test code = 5905-5) 6.2 % 3.6-12.0 Eosinophils/100 leukocytes i n Blood by Automated count (test code = 713-8) 0.3 % 0.0-5.4 Basophils/100 leukocytes in Unspecified specimen (test code = 73344-6) 0.4 % 0.0-0.79 [facility] Groupdifferential panel, [id number] 00:00:00 NeutrophilsBandLymphocyteAtypical LymphMonocyteEosinophilBasophilMetamyelocyteMyelocytePlatelet EstimatePlatelet MorphologyPoikilocytosisAnisocytosisMacrocytosisToxic GranulationHypersegmented PolysSmudge CellsArtagorda Medical GroupChlamydia trachomatis+Neisseria gonorrhoeae DNA [Presence] in Cervix by Probe and target amplification method 2019-05-11 00:00:00ResultsMatagorda Medical GroupBacteria identified in Urine by [id number] 00:00:00Bacteria Ur CultArtarda Medical GroupReagin Ab [Presence] in Serum by [id number] 00:00:00* Test Item Value Reference Range Interpretation Comme nts Reagin Ab [Presence] in Seru m by RPR (test code = 86837-1) nonreactive nonreactive [facility] CenterHepatitis B virus surface Ag [Presence] in Serum 2019-05-11 00:00:00* Test Item Value Reference Range Interpretation Comme nts .hepatitis B surface antigen (test code = .hepatitis B surface antigen) negative negative [facility] CenterComprehensive metabolic 2000 panel - Serum or Plasma 2019-05-11 00:00:00* Test Item Value Reference Range Interpretation Comme nts Glucose [Mass/volume] in Ser um or Plasma (test code = 2345-7) 72 mg/dL 74-106 L Urea nitrogen [Mass/volume] in Serum or Plasma (test code = 3094-0) 6 mg/dL 6-20 Osmolality of Serum or Plasm a (test code = 2692-2) 270 280-300 L creatinine (test code = creatinine) 0.3 mg/dL 0.50-0.90 L glomerular filtration rate ( test code = glomerular filtration rate) >60.00 Urea nitrogen/Creatinine [Ma ss Ratio] in Serum or Plasma (test code = 3097-3) 20.0 12-20 sodium level (test code = so dium level) 137 mmol/L 135-145 potassium level (test code = potassium level) 2.9 mmol/L 3.5-5.2 L chloride level (test code = chloride level) 102 mmol/L 98-108 CO2 (test code = CO2) 18 mmol/L 21-32 L anion gap (test code = anion gap) 19.9 mEq/L 12-20 calcium level (test code = c alcium level) 8.7 mg/dL 8.6-10.0 total protein (test code = t otal protein) 6.3 g/dL 6.6-8.7 L albumin (test code = albumin) 3.6 g/dL 3.5-5.2 globulin (test code = globulin) 2.7 gm/dL A/G ratio (test code = A/G ratio) 1.3 >1.0 bilirubin,total (test code = bilirubin,total) <0.3 0.0-1.2 AST/SGOT (test code = AST/SGOT) 21 U/L 15-32 Alanine aminotransferase [Enzymatic activity/volume] in Serum or Plasma (test code = 1742-6) 19 U/L 0-33 Alkaline phosphatase [Enzyma tic activity/volume] in Serum or Plasma (test code = 6768-6) 89 U/L 35-105 [facility] GroupUrinalysis complete panel - [id number] 00:00:00* Test Item Value Reference Range Interpretation Comme nts Color of Urine by Auto (test code = 13765-2) light yellow Appearance of Urine (test co de = 5767-9) SL cloudy clear A Glucose [Presence] in Urine by Automated test strip (test code = 17974-2) negative negative Bilirubin.total [Mass/volume ] in Urine (test code = 1978-6) negative negative Ketones [Mass/volume] in Uri ne by Automated test strip (test code = 46665-9) =1 negative H Specific gravity of Urine by Automated test strip (test code = 78823-4) 1.011 1.003-1.030 blood urine (test code = blo od urine) negative negative pH of Urine (test code = 2756-5) 7.000 5-9 protein urine (UA) (test cod e = protein urine (UA)) negative negative Urobilinogen [Presence] in U rine (test code = 59128-6) normal 0.2-1.0 Nitrite [Presence] in Urine by Test strip (test code = 5802-4) negative negative Leukocyte esterase [Presence ] in Urine by Automated test strip (test code = 55411-8) =2 negative H Erythrocytes [#/volume] in U rine by Automated count (test code = 798-9) <1 0-5 Leukocytes [#/area] in Urine sediment by Automated count (test code = 60160-1) =20-29 0-5 H Epithelial cells [Presence] in Urine sediment by Light microscopy (test code = 05367-4) =1-5 0-5 Bacteria identified in Urine by Culture (test code = 630-4) moderate (2 none detect H Casts [#/area] in Urine sedi ment by Automated count (test code = 67725-0) =11-14 none detect H urine culture added? (test c ode = urine culture added?) yes [facility] CenterMicroscopic observation [Identifier] in Unspecified specimen by Wet [id number] 00:00:00[facility] Differential panel - [id number] 00:00:00* Test Item Value Reference Range Interpretation Comme nts white blood count (test code = white blood count) 11.1 K/uL 4.0-11.5 red blood count (test code = red blood count) 3.35 M/uL 3.80-5.20 L Hemoglobin [Mass/volume] in Blood (test code = 718-7) 9.2 g/dL 10.5-15.7 L hematocrit (test code = hematocrit) 29.7 % 34.0-50.0 L Erythrocyte mean corpuscular volume [Entitic volume] (test code = 76103-0) 88.6 fL 78-98 Erythrocyte mean corpuscular hemoglobin [Entitic mass] (test code = 42264-2) 27.5 pg 26.2-33.4 mean corpuscular HGB conc (t est code = mean corpuscular HGB conc) 31.1 g/dL 31.5-36.2 L red cell distribution width (test code = red cell distribution width) 12.5 % 11.5-15.5 Platelets [#/volume] in Bloo d (test code = 55650-8) 209 K/uL 137-338 Platelet mean volume [Entiti c volume] in Blood (test code = 32086-4) 7.3 fL 8.4-11.8 L Neutrophils.band form/100 leukocytes in Blood (test code = 15821-8) 72.2 % 44.4-80.1 Lymphocytes/100 leukocytes i n Body fluid (test code = 88055-6) 20.8 % 10.0-50.0 Monocytes/100 leukocytes in Blood by Automated count (test code = 5905-5) 6.2 % 3.6-12.0 Eosinophils/100 leukocytes i n Blood by Automated count (test code = 713-8) 0.3 % 0.0-5.4 Basophils/100 leukocytes in Unspecified specimen (test code = 18368-1) 0.4 % 0.0-0.79 [facility] Centerdifferential panel, [id number] 00:00:00 NeutrophilsBandLymphocyteAtypical LymphMonocyteEosinophilBasophilMetamyelocyteMyelocytePlatelet EstimatePlatelet MorphologyPoikilocytosisAnisocytosisMacrocytosisToxic GranulationHypersegmented PolysSmudge CellsCentral [facility]idential CenterChlamydia trachomatis+Neisseria gonorrhoeae DNA [Presence] in Cervix by Probe and target amplification method 2019-05-11 00:00:00ResultsCentral [facility] Residential CenterBacteria identified in Urine by [id number] 00:00:00Bacteria Ur CultCentral [facility] Residential CenterReagin Ab [Presence] in Serum by [id number] 00:00:00* Test Item Value Reference Range Interpretation Comme nts Reagin Ab [Presence] in Seru m by RPR (test code = 67706-6) nonreactive nonreactive [facility] CenterHepatitis B virus surface Ag [Presence] in Serum 2019-05-11 00:00:00* Test Item Value Reference Range Interpretation Comme nts .hepatitis B surface antigen (test code = .hepatitis B surface antigen) negative negative [facility] CenterComprehensive metabolic 2000 panel - Serum or Plasma 2019-05-11 00:00:00* Test Item Value Reference Range Interpretation Comme nts Glucose [Mass/volume] in Ser um or Plasma (test code = 2345-7) 72 mg/dL 74-106 L Urea nitrogen [Mass/volume] in Serum or Plasma (test code = 3094-0) 6 mg/dL 6-20 Osmolality of Serum or Plasm a (test code = 2692-2) 270 280-300 L creatinine (test code = creatinine) 0.3 mg/dL 0.50-0.90 L glomerular filtration rate ( test code = glomerular filtration rate) >60.00 Urea nitrogen/Creatinine [Ma ss Ratio] in Serum or Plasma (test code = 3097-3) 20.0 12-20 sodium level (test code = so dium level) 137 mmol/L 135-145 potassium level (test code = potassium level) 2.9 mmol/L 3.5-5.2 L chloride level (test code = chloride level) 102 mmol/L 98-108 CO2 (test code = CO2) 18 mmol/L 21-32 L anion gap (test code = anion gap) 19.9 mEq/L 12-20 calcium level (test code = c alcium level) 8.7 mg/dL 8.6-10.0 total protein (test code = t otal protein) 6.3 g/dL 6.6-8.7 L albumin (test code = albumin) 3.6 g/dL 3.5-5.2 globulin (test code = globulin) 2.7 gm/dL A/G ratio (test code = A/G ratio) 1.3 >1.0 bilirubin,total (test code = bilirubin,total) <0.3 0.0-1.2 AST/SGOT (test code = AST/SGOT) 21 U/L 15-32 Alanine aminotransferase [Enzymatic activity/volume] in Serum or Plasma (test code = 1742-6) 19 U/L 0-33 Alkaline phosphatase [Enzyma tic activity/volume] in Serum or Plasma (test code = 6768-6) 89 U/L 35-105 [facility] - [id number] 09:35:00* Test Item Value Reference Range Interpretation Comme nts Leukocytes (test code = Leukocytes) Negative Nitrite (test code = Nitrite) negative Urobilinogen (test code = Urobilinogen) 1 Protein (test code = Protein) Negative pH (test code = pH) 7.0 Blood (test code = Blood) Negative Specific Hubbard (test code = Specific Hubbard) 1.020 Ketone (test code = Ketone) Negative Bilirubin (test code = Bilirubin) Negative Glucose (test code = Glucose) Negative Appearance (test code = Appearance) Clear Color (test code = Color) Yellow [facility] - [id number] 09:35:00* Test Item Value Reference Range Interpretation Comme nts Leukocytes (test code = Leukocytes) Negative Nitrite (test code = Nitrite) negative Urobilinogen (test code = Urobilinogen) 1 Protein (test code = Protein) Negative pH (test code = pH) 7.0 Blood (test code = Blood) Negative Specific Hubbard (test code = Specific Hubbard) 1.020 Ketone (test code = Ketone) Negative Bilirubin (test code = Bilirubin) Negative Glucose (test code = Glucose) Negative Appearance (test code = Appearance) Clear Color (test code = Color) Yellow [facility] - [id number] 09:35:00* Test Item Value Reference Range Interpretation Comme nts Leukocytes (test code = Leukocytes) Negative Nitrite (test code = Nitrite) negative Urobilinogen (test code = Urobilinogen) 1 Protein (test code = Protein) Negative pH (test code = pH) 7.0 Blood (test code = Blood) Negative Specific Hubbard (test code = Specific Hubbard) 1.020 Ketone (test code = Ketone) Negative Bilirubin (test code = Bilirubin) Negative Glucose (test code = Glucose) Negative Appearance (test code = Appearance) Clear Color (test code = Color) [facility] - [id number] 00:00:00 * Test Item Value Reference Range Interpretation Comme nts white blood count (test code = white blood count) 10.5 K/uL 4.0-11.5 red blood count (test code = red blood count) 3.48 M/uL 3.80-5.20 L Hemoglobin [Mass/volume] in Blood (test code = 718-7) 10.0 g/dL 10.5-15.7 L hematocrit (test code = hematocrit) 30.5 % 34.0-50.0 Erythrocyte mean corpuscular volume [Entitic volume] (test code = 44869-1) 87.5 fL 78-98 Erythrocyte mean corpuscular hemoglobin [Entitic mass] (test code = 90495-5) 28.7 pg 26.2-33.4 mean corpuscular HGB conc (t est code = mean corpuscular HGB conc) 32.9 g/dL 31.5-36.2 red cell distribution width (test code = red cell distribution width) 11.6 % 11.5-15.5 Platelets [#/volume] in Bloo d (test code = 90234-2) 239 K/uL 137-338 Platelet mean volume [Entiti c volume] in Blood (test code = 10807-8) 7.1 fL 8.4-11.8 L Neutrophils.band form/100 leukocytes in Blood (test code = 99645-8) 75.8 % 44.4-80.1 Lymphocytes/100 leukocytes i n Body fluid (test code = 99016-3) 17.7 % 10.0-50.0 Monocytes/100 leukocytes in Blood by Automated count (test code = 5905-5) 5.4 % 3.6-12.0 Eosinophils/100 leukocytes i n Blood by Automated count (test code = 713-8) 0.5 % 0.0-5.4 Basophils/100 leukocytes in Unspecified specimen (test code = 99100-4) 0.6 % 0.0-0.79 [facility]HIV [facility]2 Ab [Presence] in [id number] 00:00:00HIV P24 AgHIV-1/2 [facility]Mat[facility] InfantsBlood group antibody screen [Presence] in Serum or [id number] 00:00:00* Test Item Value Reference Range Interpretation Comme nts Blood group antibody screen [Presence] in Serum or Plasma (test code = 890-4) positive [facility] [Presence] in Serum by [id number] 00:00:00* Test Item Value Reference Range Interpretation Comme nts Reagin Ab [Presence] in Seru m by RPR (test code = 46853-2) nonreactive nonreactive [facility] CenterCB W Auto Differential panel - [id number] 00:00:00 * Test Item Value Reference Range Interpretation Comme nts white blood count (test code = white blood count) 10.5 K/uL 4.0-11.5 red blood count (test code = red blood count) 3.48 M/uL 3.80-5.20 L Hemoglobin [Mass/volume] in Blood (test code = 718-7) 10.0 g/dL 10.5-15.7 L hematocrit (test code = hematocrit) 30.5 % 34.0-50.0 Erythrocyte mean corpuscular volume [Entitic volume] (test code = 46843-8) 87.5 fL 78-98 Erythrocyte mean corpuscular hemoglobin [Entitic mass] (test code = 01254-4) 28.7 pg 26.2-33.4 mean corpuscular HGB conc (t est code = mean corpuscular HGB conc) 32.9 g/dL 31.5-36.2 red cell distribution width (test code = red cell distribution width) 11.6 % 11.5-15.5 Platelets [#/volume] in Bloo d (test code = 81055-6) 239 K/uL 137-338 Platelet mean volume [Entiti c volume] in Blood (test code = 71749-3) 7.1 fL 8.4-11.8 L Neutrophils.band form/100 leukocytes in Blood (test code = 22162-1) 75.8 % 44.4-80.1 Lymphocytes/100 leukocytes i n Body fluid (test code = 66974-7) 17.7 % 10.0-50.0 Monocytes/100 leukocytes in Blood by Automated count (test code = 5905-5) 5.4 % 3.6-12.0 Eosinophils/100 leukocytes i n Blood by Automated count (test code = 713-8) 0.5 % 0.0-5.4 Basophils/100 leukocytes in Unspecified specimen (test code = 02708-9) 0.6 % 0.0-0.79 [facility]HIV [facility] [Presence] in [id number] 00:00:00HIV P24 AgHIV-1/2 AbMatagorda Medical GroupBlood group antibody screen [Presence] in Serum or [id number] 00:00:00* Test Item Value Reference Range Interpretation Comme nts Blood group antibody screen [Presence] in Serum or Plasma (test code = 890-4) positive [facility] Group[facility] [Presence] in Serum by [id number] 00:00:00* Test Item Value Reference Range Interpretation Comme nts Reagin Ab [Presence] in Seru m by RPR (test code = 49091-2) nonreactive nonreactive [facility] GroupUrinalysis macro (dipstick) panel - [id number] 14:31:44* Test Item Value Reference Range Interpretation Comme nts Leukocytes (test code = Leukocytes) Negative Nitrite (test code = Nitrite) negative Urobilinogen (test code = Urobilinogen) .2 Protein (test code = Protein) Negative pH (test code = pH) 7.0 Blood (test code = Blood) Negative Specific Hubbard (test code = Specific Hubbard) 1.020 Ketone (test code = Ketone) Negative Bilirubin (test code = Bilirubin) Negative Glucose (test code = Glucose) Negative Appearance (test code = Appearance) Clear Color (test code = Color) Yellow [facility]dipstick[facility] panel - [id number] 14:31:44* Test Item Value Reference Range Interpretation Comme nts Leukocytes (test code = Leukocytes) Negative Nitrite (test code = Nitrite) negative Urobilinogen (test code = Urobilinogen) .2 Protein (test code = Protein) Negative pH (test code = pH) 7.0 Blood (test code = Blood) Negative Specific Hubbard (test code = Specific Hubbard) 1.020 Ketone (test code = Ketone) Negative Bilirubin (test code = Bilirubin) Negative Glucose (test code = Glucose) Negative Appearance (test code = Appearance) Clear Color (test code = Color) [facility] - [id number] 14:31:44* Test Item Value Reference Range Interpretation Comme nts Leukocytes (test code = Leukocytes) Negative Nitrite (test code = Nitrite) negative Urobilinogen (test code = Urobilinogen) .2 Protein (test code = Protein) Negative pH (test code = pH) 7.0 Blood (test code = Blood) Negative Specific Hubbard (test code = Specific Hubbard) 1.020 Ketone (test code = Ketone) Negative Bilirubin (test code = Bilirubin) Negative Glucose (test code = Glucose) Negative Appearance (test code = Appearance) Clear Color (test code = Color) [facility]
== END 2024-07-16 19:44 | disposition home or self-care (01) ==
LOC: ER 15:32
DX: M25.511 Pain in right shoulder (principal); R10.13 Epigastric pain; R51.9 Headache, unspecified; V49.9XXA Car occupant (driver) (passenger) injured in unspecified traffic accident, initial encounter
CPT/HCPCS: 96361; 85025; 81001; 36415; 81025; 83690; 80053; 70450; 74177; 73030; 96375; 96374; 99284; Q9967; J2765; J1200; J2405; J7030